=== PATIENT | female | born 1930 | race Caucasian/White ===

== ENCOUNTER 2016-05-29 20:34 | Inpatient (IN) | payer MEDICARE, BC ==
[~2016-05-29] VITALS: Ht 160 cm; Wt 54.3 kg
[~2016-05-29 20:34] MED LIST: AMLO10 PO; ASPI81 PO; BUTACAP2 PO; CIPR500T2 PO; DONE5TAB14 PO; HCTZ25 PO; LISI20 PO; PRED50 PO
[2016-05-29 20:38] VITALS: BP 189/83; PULSE 89; RESP 15; TEMP 98.6; O2SAT 98
--- NOTE | 2016-05-29 21:05 | PD ---
HPI Chief Complaint: Head Injury Time Seen by Provider: 21:05 Travel History International Travel<30 days: No Contact w/Intl Traveler<30days: No Traveled to known affect area: No History of Present Illness HPI 86-year-old female with a history of hypertension presents to the emergency department for evaluation of head injury with confusion. The patient is accompanied by her [id number] who provides some of the history. The patient states that this afternoon she fell while sweeping in her garage. States that she is unsure how she fell, does not remember if she tripped and fell or if she became dizzy and fell. States that she does not remember how long she laid there or if she lost consciousness. She does state she remembers her [id number]-evn calling her to check on her and then coming over to pick her up and bring her here. The patient denies any complaints. Denies any headache, lightheadedness, dizziness, nausea, vomiting, numbness or tingling, weakness, neck pain, back pain, chest pain, shortness of breath. The patient's [id number] reports that the patient has a history of which she believes is mild dementia undiagnosed due to the patient's sensitivity regarding the issue. States that she does have short-term memory loss and this is been ongoing for several years. States that she called the patient at 7 PM to check on her which is when the patient told her that she had fallen while sweeping hitting her head and was down for about 30 minutes. States that she is acting strange and a little confused. Denies any anticoagulation. No other complaints. PFSH Past Medical History Diminished Hearing: No Hypertension: Yes Musculoskeletal: Yes (CHRONIC BACK PAIN LEVEL L3-L4) Psychiatric: No Tetanus Vaccination: Unknown Influenza Vaccination: Yes Menopausal: Yes Past Surgical History Gynecologic Surgery: Yes Hysterectomy: Yes (1976) Other Surgery: Yes (back surgery) Social History Alcohol Use: Yes (OCCASSIONAL) Tobacco Use: No Substance Use: No Allergies-Medications (Allergen,Severity, Reaction): Coded Allergies: Vitamin B12 (Verified Allergy, Severe, 05/29/16) Dilaudid (Verified Allergy, Intermediate, Sedation, 05/29/16) PT'S STATES AFTER DILAUDID WAS ADMINISTERED PT WENT UNCONSIOUS Reported Meds & Prescriptions Reported Meds & Active Scripts Active Active Prescriptions or Reported Medications Unobtainable Review of Systems Except as stated in HPI: all other systems reviewed are Neg Physical Exam Narrative GENERAL: Well-nourished and well-developed pleasant female patient in no acute distress. SKIN: No obvious lacerations or abrasions noted. HEAD: Normocephalic and atraumatic. Contusion to posterior scalp with tenderness to palpation. EYES: No scleral icterus, injection, or drainage. PERRLA. EOMI. No hyphema present. ENT: No septal hematoma or hemotympanum noted. Oropharynx is clear and the airway is patent. NECK: Supple and the trachea is midline. No obvious deformities, crepitus, or midline tenderness noted. CARDIOVASCULAR: Regular rate and rhythm. RESPIRATORY: Breath sounds are equal bilaterally with no accessory muscle use, wheezing, rhonchi, or crackles. GASTROINTESTINAL: Abdomen is soft, non-tender, and nondistended. MUSCULOSKELETAL: No obvious deformities, swelling, cyanosis, or ecchymosis is present throughout the upper and lower extremities. Patient has full range of motion without any signs of neurovascular compromise. Strength 5/5 upper and lower extremities and equal bilaterally. NEUROLOGICAL: Awake, alert, and oriented. Normal speech and gait. Cranial nerves are grossly intact. Data Data Last Documented VS Vital Signs Date Time Temp Pulse Resp B/P Pulse Ox O2 Delivery O2 Flow Rate FiO2 05/29/16:17 76 173/73 Room Air 05/29/16 20:49 96 05/29/16 20:38 98.6 15 Orders Electrocardiogram (05/29/16 21:04) Complete Blood Count With Diff (05/29/16 21:04) Comprehensive Metabolic Panel (05/29/16 21:04) Creatine Kinase (Cpk) (05/29/16 21:04) Prothrombin Time / Inr (Pt) (05/29/16 21:04) Act Partial Throm Time (Ptt) (05/29/16 21:04) Troponin I (05/29/16 21:04) Urinalysis - C+S If Indicated (05/29/16 21:04) Ct Brain W/O Iv Contrast(Rout) (05/29/16 21:04) Blood Glucose (05/29/16 21:04) Ecg Monitoring (05/29/16 21:04) Iv Access Insert/Monitor (05/29/16 21:04) Oximetry (05/29/16 21:04) Sodium Chloride 0.9% Flush (Ns Flush) (05/29/16 21:15) Admit Order (Ed Use Only) (05/29/16 22:16) Consult Neurosurgery (05/29/16 ) Labs Laboratory Tests Test 05/29/16 21:35 White Blood Count 9.1 TH/MM3 Red Blood Count 3.86 MIL/MM3 Hemoglobin 11.7 GM/DL Hematocrit 34.9 % Mean Corpuscular Volume 90.4 FL Mean Corpuscular Hemoglobin 30.4 PG Mean Corpuscular Hemoglobin 33.6 % Concent Red Cell Distribution Width 14.7 % Platelet Count 282 TH/MM3 Mean Platelet Volume 8.4 FL Neutrophils (%) (Auto) 72.0 % Lymphocytes (%) (Auto) 15.0 % Monocytes (%) (Auto) 9.7 % Eosinophils (%) (Auto) 2.4 % Basophils (%) (Auto) 0.9 % Neutrophils # (Auto) 6.5 TH/MM3 Lymphocytes # (Auto) 1.4 TH/MM3 Monocytes # (Auto) 0.9 TH/MM3 Eosinophils # (Auto) 0.2 TH/MM3 Basophils # (Auto) 0.1 TH/MM3 CBC Comment DIFF FINAL Differential Comment Prothrombin Time 10.6 SEC Prothromb Time International 1.0 RATIO Ratio Activated Partial 30.8 SEC Thromboplast Time Sodium Level 141 MEQ/L Potassium Level 4.7 MEQ/L Chloride Level 106 MEQ/L Carbon Dioxide Level 28.8 MEQ/L Anion Gap 6 MEQ/L Blood Urea Nitrogen 28 MG/DL Creatinine 1.34 MG/DL Estimat Glomerular Filtration 38 ML/MIN Rate Random Glucose 97 MG/DL Calcium Level 8.7 MG/DL Total Bilirubin 0.3 MG/DL Aspartate Amino Transf 24 U/L (AST/SGOT) Alanine Aminotransferase 19 U/L (ALT/SGPT) Alkaline Phosphatase 89 U/L Total Creatine Kinase 114 U/L Troponin I LESS THAN 0.02 NG/ML Total Protein 7.0 GM/DL Albumin 3.2 GM/DL [facility] Medical Decision Making Medical Screen Exam Complete: Yes Emergency Medical Condition: Yes Differential Diagnosis Scalp contusion versus intracranial hemorrhage versus concussion versus dementia versus electrolyte abnormality Narrative Course 86-year-old female presents to the emergency department for evaluation of fall with head trauma. Patient is afebrile, vital signs are stable. No focal neurologic deficits. She is awake, alert and oriented to person, place and situation but not to time. She has a contusion to her posterior scalp. She is unsure how she fell. IV access was obtained, labs were drawn and sent. CT of the head has been ordered and is pending. Head CT shows acute subdural hematoma on the right with a separate right frontal hemorrhage either intraparenchymal or separate subdural hematoma without any mass effect. CBC is unremarkable. CBC shows mild renal insufficiency with a creatinine of 1.34, BUN 28, GFR 38. Troponin is less than 0.02. Coags are unremarkable. Patient will be admitted to the ophthalmic pathologist service with neurosurgery consultation for intracranial hemorrhage. I discussed the case with my attending physician Dr. Casas who is aware of the patients history, physical examination findings, and treatment plan. Physician Communication Physician Communication My attending physician Dr. Casas spoke with Dr. Kelly neurosurgeon and Dr. Cespedes ophthalmic pathologist. Diagnosis Primary Impression: Intracranial hemorrhage Admitting Information Admitting Physician Requests: Admit Scripts Unable to Obtain Active Prescriptions or Reported Meds Renee Serna May 29, 2016 21:05
[2016-05-29] MEDS ORDERED: SODIUM CHLORIDE 0.9% FLUSH 10 ML FLUSH IVF PRN (21:15)
[2016-05-29 21:17] VITALS: BP 173/73; PULSE 76
--- NOTE | 2016-05-29 21:31 | RADRPT ---
EXAM DATE/TIME: 05/29/2016 21:18 [place] COMPARISON: No previous studies available for comparison. INDICATIONS : Fall and hit head today; increased confusion. RADIATION DOSE: 35.93 CTDIvol (mGy) MEDICAL HISTORY : Hypertension. SURGICAL HISTORY : None. ENCOUNTER: Initial ACUITY: 1 day PAIN SCALE: 5/10 LOCATION: cranial TECHNIQUE: Multiple contiguous axial images were obtained of the head. Using automated exposure control and adj ustment of the mA and/or kV according to patient size, radiation dose was kept as low as reasonably a chievable to obtain optimal diagnostic quality images. FINDINGS: There is an approximate 8 mm acute subdural hematoma in the right frontal lobe with a separate a talia approximate 2.2 cm hemorrhage probably intraparenchymal in the right frontal lobe. This latter ar ea may also be subdural in location. There is no mass effect. Slight degree of brain atrophy is seen. Slight periventricular white matter changes are seen nonspecific mostly consistent with chronic smal l vessel ischemic changes. CONCLUSION: Acute subdural hematoma on the right with a separate right frontal hemorrhage either intraparenchymal or separate subdural hematoma without any mass effect. Dev Mccullough MD on May 29, 2016 at 21:25 Board Certified Radiologist. This report was verified electronically.
[2016-05-29 21:47] LABS: AUTOMATED NEUTROPHIL # 6.5 TH/MM3 (1.8-7.7); BASOPHIL # 0.1 TH/MM3 (0-0.2); BASOPHIL % 0.9 % (0.0-2.0); EOSINOPHIL # 0.2 TH/MM3 (0-0.4); EOSINOPHIL % 2.4 % (0.0-4.0); HEMATOCRIT 34.9 % (35.0-46.0); HEMO FLAGS DIFF FINAL; LYMPHOCYTE # 1.4 TH/MM3 (1.0-4.8); MEAN CELL VOLUME 90.4 FL (80.0-100.0); MEAN CORPUSCULAR HEMOGLOBIN 30.4 PG (27.0-34.0); MEAN CORPUSCULAR HGB CONC 33.6 % (32.0-36.0); MONO % 9.7 % (0.0-8.0); PLATELET COUNT 282 TH/MM3 (150-450); RED BLOOD COUNT 3.86 MIL/MM3 (4.00-5.30); RED CELL DISTRIBUTION WIDTH 14.7 % (11.6-17.2); WHITE BLOOD COUNT 9.1 TH/MM3 (4.0-11.0)
[2016-05-29 21:58] LABS: APTT (PATIENT) 30.8 SEC (24.3-30.1); PROTHROMBIN TIME - PATIENT 10.6 SEC (9.8-11.6)
--- NOTE | 2016-05-29 22:08 | PD ---
Physical Exam Narrative Patient was seen by me and my inside sales assistant. Data Data Last Documented VS Vital Signs Date Time Temp Pulse Resp B/P Pulse Ox O2 Delivery O2 Flow Rate FiO2 05/29/16:17 76 173/73 Room Air 05/29/16 20:49 96 05/29/16 20:38 98.6 15 Orders Electrocardiogram (05/29/16 21:04) Complete Blood Count With Diff (05/29/16 21:04) Comprehensive Metabolic Panel (05/29/16 21:04) Creatine Kinase (Cpk) (05/29/16 21:04) Prothrombin Time / Inr (Pt) (05/29/16 21:04) Act Partial Throm Time (Ptt) (05/29/16 21:04) Troponin I (05/29/16 21:04) Urinalysis - C+S If Indicated (05/29/16 21:04) Ct Brain W/O Iv Contrast(Rout) (05/29/16 21:04) Blood Glucose (05/29/16 21:04) Ecg Monitoring (05/29/16 21:04) Iv Access Insert/Monitor (05/29/16 21:04) Oximetry (05/29/16 21:04) Sodium Chloride 0.9% Flush (Ns Flush) (05/29/16 21:15) Labs Laboratory Tests Test 05/29/16 21:35 White Blood Count 9.1 TH/MM3 Red Blood Count 3.86 MIL/MM3 Hemoglobin 11.7 GM/DL Hematocrit 34.9 % Mean Corpuscular Volume 90.4 FL Mean Corpuscular Hemoglobin 30.4 PG Mean Corpuscular Hemoglobin 33.6 % Concent Red Cell Distribution Width 14.7 % Platelet Count 282 TH/MM3 Mean Platelet Volume 8.4 FL Neutrophils (%) (Auto) 72.0 % Lymphocytes (%) (Auto) 15.0 % Monocytes (%) (Auto) 9.7 % Eosinophils (%) (Auto) 2.4 % Basophils (%) (Auto) 0.9 % Neutrophils # (Auto) 6.5 TH/MM3 Lymphocytes # (Auto) 1.4 TH/MM3 Monocytes # (Auto) 0.9 TH/MM3 Eosinophils # (Auto) 0.2 TH/MM3 Basophils # (Auto) 0.1 TH/MM3 CBC Comment DIFF FINAL Differential Comment Prothrombin Time 10.6 SEC Prothromb Time International 1.0 RATIO Ratio Activated Partial 30.8 SEC Thromboplast Time MDM Supervised Visit with JAIRON: Yes Interpretation(s) Last Impressions Head CT 05/29/162103 Signed Impressions: Service Date/Time: Sunday, May 29, 2016 21:18 - CONCLUSION: Acute subdural hematoma on the right with a separate right frontal hemorrhage either intraparenchymal or separate subdural hematoma without any mass effect. Dev Mccullough MD Diagnosis Primary Impression: Intracranial hemorrhage Admitting Information Admitting Physician Requests: Admit Scripts Unable to Obtain Active Prescriptions or Reported Meds Micheal Casas MD May 29, 2016 22:08
[2016-05-29 22:16] LABS: ALKALINE PHOSPHATASE 89 U/L (45-117); ALT (GPT) 19 U/L (10-53); ANION GAP 6 MEQ/L (5-15); AST (GOT) 24 U/L (15-37); BICARBONATE 28.8 MEQ/L (21.0-32.0); BLOOD UREA NITROGEN 28 MG/DL (7-18); CHLORIDE 106 MEQ/L (98-107); CREATINE KINASE 114 U/L (26-192); GLOMERULAR FILTRATION RATE 38 ML/MIN (>89); POTASSIUM 4.7 MEQ/L (3.5-5.1); SODIUM (NA) 141 MEQ/L (136-145); TOTAL BILIRUBIN ADULT 0.3 MG/DL (0.2-1.0)
--- NOTE | 2016-05-29 22:43 | HHI.HP ---
[facility] Service Critical Care Medicine Primary Care Physician Mckay Franco, DO Admission Diagnosis intracranial hemorrhage Diagnosis: Travel History International Travel<30 Days: No Contact w/Intl Traveler <30 Da: No Traveled to Known Affected Are: No History of Present Illness 86-year-old very pleasant female with a history of hypertension and some chronic back pain presents for evaluation of head injury with confusion. The patient is accompanied by her [id number] who provides some of the history. The patient fell while sweeping in her garage. She is unsure how she fell, does not remember if she tripped and fell or if she became dizzy and fell. States that she does not remember how long she laid there or if she lost consciousness. CT of the head shows small subdural hematoma with some small intraparenchymal hemorrhagic. She is admitted to critical care unit for neurologic monitoring and observation. Review of Systems Constitutional: DENIES: Diaphoretic episodes, Fatigue, Fever, Weight gain, Weight loss, Chills, Dizziness, Change in appetite, Night Sweats Endocrine: DENIES: Abnorml menstrual pattern, Heat/cold intolerance, Polydipsia , Polyuria, Polyphagia Eyes: DENIES: Blurred vision, Diplopia, Eye inflammation, Eye pain, Vision loss , Photosensitivity, Double Vision Ears, nose, mouth, throat: DENIES: Tinnitus, Hearing loss, Vertigo, Nasal discharge, Oral lesions, Throat pain, Hoarseness, Ear Pain, Running Nose, Epistaxis, Sinus Pain, Toothache, Odynophagia Respiratory: DENIES: Apneas, Cough, Snoring, Wheezing, Hemoptysis, Sputum production, Shortness of breath Cardiovascular: COMPLAINS OF: Chest pain, Palpitations, Syncope, Dyspnea on Exertion, PND, Lower Extremity Edema, Orthopnea, Claudication Gastrointestinal: DENIES: Abdominal pain, Black stools, Bloody stools, Constipation, Diarrhea, Nausea, Vomiting, Difficulty Swallowing, Anorexia Genitourinary: DENIES: Abnormal vaginal bleeding, Dysmenorrhea, Dyspareunia, Sexual dysfunction, Urinary frequency, Urinary incontinence, Urgency, Hematuria , Dysuria, Nocturia, Vaginal discharge Musculoskeletal: DENIES: Joint pain, Muscle aches, Stiffness, Joint Swelling, Back pain, Neck pain Integumentary: DENIES: Abnormal pigmentation, Pruritus, Rash, Nail changes, Breast masses, Breast skin changes, Nipple discharge Hematologic/lymphatic: DENIES: Bruising, Lymphadenopathy Immunologic/allergic: DENIES: Eczema, Urticaria Neurologic: COMPLAINS OF: Headache, DENIES: Abnormal gait, Localized weakness , Paresthesias, Seizures, Speech Problems, Tremor, Poor Balance Psychiatric: DENIES: Anxiety, Confusion, Mood changes, Depression, Hallucinations, Agitation, Suicidal Ideation, Homicidal Ideation, Delusions Past Family Social History Allergies: Coded Allergies: Vitamin B12 (Verified Allergy, Severe, 05/29/16) Dilaudid (Verified Allergy, Intermediate, Sedation, 05/29/16) PT'S STATES AFTER DILAUDID WAS ADMINISTERED PT WENT UNCONSIOUS Past Medical History Hypertension Chronic back pain Short-term memory problem Past Surgical History Hysterectomy Spinal surgery Reported Medications Meloxicam Blood pressure medications Active Ordered Medications Current Medications Medications (Trade) Dose Ordered Sig/Sam Route PRN Reason Start Time Stop Time Status Last Admin Dose Admin Sodium Chloride (NS 1000 ml Inj) 1,000 ml @ 84 mls/hr [id number] IV 05/29/16 23:00 05/29/16 23:24 Sodium Chloride (NS Flush) 2 ml UNSCH PRN .XX FLUSH AFTER USING IV ACCESS 05/29/16 22:45 Sodium Chloride (NS Flush) 2 ml BID .XX 05/29/16 22:45 05/29/16 23:23 Acetaminophen (Tylenol) 650 mg Q6H PRN PO PAIN 1-10 AND/OR FEVER >101F 05/29/16 22:45 Ondansetron HCl (Zofran Inj) 4 mg Q6H PRN IV NAUSEA OR VOMITING 05/29/16 22:45 Metoclopramide HCl (Reglan Inj) 5 mg Q6H PRN IV NAUSEA OR VOMITING 05/29/16 22:45 Miscellaneous Information 1 [id number] XX 05/29/16 22:45 Chlorhexidine Gluconate (Chlorhexidine 2% Cloth) 3 pack Taper DAILY@04 TOP 05/30/16 04:00 05/26/17 03:59 Chlorhexidine Gluconate (Chlorhexidine 2% Cloth) 3 pack UNSCH PRN TOP HYGIENIC CARE 05/29/16 22:45 Hydralazine HCl (Apresoline Inj) 20 mg Q4H PRN IV PUSH SBP>160, DBP>90 05/29/16 22:45 Family History Noncontributory Social History Negative 3 Physical Exam Vital Signs Vital Signs Date Time Temp Pulse Resp B/P Pulse Ox O2 Delivery O2 Flow Rate FiO2 05/29/16 21:17 76 173/73 Room Air 05/29/16 20:49 81 96 Room Air 05/29/16 20:38 98.6 89 15 189/83 98 Room Air Physical Exam GENERAL: Well-nourished, well-developed patient very pleasant lady. SKIN: Warm and dry. HEAD: Normocephalic. EYES: No scleral icterus. No injection or drainage. NECK: Supple, trachea midline. No JVD or lymphadenopathy. CARDIOVASCULAR: Regular rate and rhythm without murmurs, gallops, or rubs. RESPIRATORY: Breath sounds equal bilaterally. No accessory muscle use. GASTROINTESTINAL: Abdomen soft, non-tender, nondistended. MUSCULOSKELETAL: No cyanosis, or edema. BACK: Nontender without obvious deformity. No CVA tenderness. EXTREMITIES: Nonfocal, no clubbing or cyanosis or edema Laboratory Laboratory Tests Test 05/29/16 21:35 White Blood Count 9.1 Red Blood Count 3.86 Hemoglobin 11.7 Hematocrit 34.9 Mean Corpuscular Volume 90.4 Mean Corpuscular Hemoglobin 30.4 Mean Corpuscular Hemoglobin 33.6 Concent Red Cell Distribution Width 14.7 Platelet Count 282 Mean Platelet Volume 8.4 Neutrophils (%) (Auto) 72.0 Lymphocytes (%) (Auto) 15.0 Monocytes (%) (Auto) 9.7 Eosinophils (%) (Auto) 2.4 Basophils (%) (Auto) 0.9 Neutrophils # (Auto) 6.5 Lymphocytes # (Auto) 1.4 Monocytes # (Auto) 0.9 Eosinophils # (Auto) 0.2 Basophils # (Auto) 0.1 CBC Comment DIFF FINAL Differential Comment Prothrombin Time 10.6 Prothromb Time International 1.0 Ratio Activated Partial 30.8 Thromboplast Time Sodium Level 141 Potassium Level 4.7 Chloride Level 106 Carbon Dioxide Level 28.8 Anion Gap 6 Blood Urea Nitrogen 28 Creatinine 1.34 Estimat Glomerular Filtration 38 Rate Random Glucose 97 Calcium Level 8.7 Total Bilirubin 0.3 Aspartate Amino Transf 24 (AST/SGOT) Alanine Aminotransferase 19 (ALT/SGPT) Alkaline Phosphatase 89 Total Creatine Kinase 114 Troponin I LESS THAN 0.02 Total Protein 7.0 Albumin 3.2 Result Diagram: 3/213405/29/162134 Imaging Last [address] 05/29/162103 Signed Impressions: Service Date/Time: Sunday, May 29, 2016 21:18 - CONCLUSION: Acute subdural hematoma on the right with a separate right frontal hemorrhage either intraparenchymal or separate subdural hematoma without any mass effect. Dev Mccullough MD Assessment and Plan Assessment and Plan Traumatic brain injury - Status post fall - Small subdural hematoma with intraparenchymal extension - No neurosurgical intervention indicated - Monitor neuro checks in the ICU per protocol - Repeat CT head a.m. - ETT and OT eval and treat Lower back pain - Resume meloxicam Hypertension - Hydralazine when necessary - Resume home meds when available DVT GI prophylaxis - Early aggressive mobilization - Heart healthy diet Critical Care: The total critical care time was 35 minutes. Time to perform other separately billable procedures was not included in the critical care time. Jagjit Cespedes MD May 29, 2016 22:43
[2016-05-29] MEDS ORDERED: METOCLOPRAMIDE HCL 10 MG/2 ML VIAL IV PRN (22:45)
[2016-05-29] MEDS ORDERED: SODIUM CHLORIDE 0.9% FLUSH 10 ML FLUSH PRN (22:45)
[2016-05-29] MEDS ORDERED: CHLORHEXIDINE GLUCONATE 2 % 1 PACK (2 CLOTHS) TOP PRN (22:45)
[2016-05-29] MEDS ORDERED: RESP: ALBUTEROL 2.5 MG/IPRATROPIUM 0.5 MG NEB (PRN) INH (22:45)
[2016-05-29] MEDS ORDERED: MISCELLANEOUS NURSING INFORMATION XX SCH (22:45)
[2016-05-29] MEDS: SODIUM CHLORIDE 0.9% FLUSH 10 ML FLUSH SCH (23:23)
[2016-05-29] MEDS: SODIUM CHLOR 0.9% 1000 ML INJ 1,000 ML IV SCH (23:24)
[2016-05-30] VITALS (9 sets, daily range): PULSE 79–101; O2SAT 98
[2016-05-30] MEDS ORDERED: GLUCAGON 1 MG/ML VIAL OTHER PRN (02:30)
[2016-05-30] MEDS ORDERED: DEXTROSE 50% IN WATER 50 ML VIAL(D50) IV PUSH PRN (02:30)
[2016-05-30] MEDS: CHLORHEXIDINE GLUCONATE 2 % 1 PACK (2 CLOTHS) TOP SCH (04:00)
[2016-05-30] MEDS: hydrALAZINE HCL 20 MG/ML VIAL IV PUSH PRN ×2 (06:17→17:14)
[2016-05-30] MEDS ORDERED: INSULIN ASPART SUPPLEMENTAL SCALE SQ SCH (07:00)
[2016-05-30] MEDS: SODIUM CHLORIDE 0.9% FLUSH 10 ML FLUSH SCH ×2 (07:37→21:00)
[2016-05-30] MEDS: ONDANSETRON HCL 4 MG/2 ML VIAL IV PRN (07:37)
--- NOTE | 2016-05-30 08:56 | PD.CONS ---
[facility] Service neurosurg Consult Requested By sandy LINARES Reason for Consult [facility] Primary Care Physician Mckay Franco, DO History of Present Illness This is a 86-year-old female with a history of arterial hypertension and chronic who suffered a head injury with confusion.Apparently she fell while sweeping in her garage. She is unsure how she fell, does not remember if she tripped and fell or if she became dizzy and fell. States that she does not remember how long she laid there or if she lost consciousness. No seizure activity. No tongue bitting. No incontinence of stool or urine. CT of the head shows small subdural hematoma with some small intraparenchymal hemorrhagic. No focal weakness. No sensory loss. No visual loss. Neurosurgical consultation was requested. Review of Systems Constitutional: DENIES: Diaphoretic episodes, Fatigue, Fever, Weight gain, Weight loss, Chills, Dizziness, Change in appetite, Night Sweats Endocrine: DENIES: Abnorml menstrual pattern, Heat/cold intolerance, Polydipsia , Polyuria, Polyphagia Eyes: DENIES: Blurred vision, Diplopia, Eye inflammation, Eye pain, Vision loss , Photosensitivity, Double Vision Ears, nose, mouth, throat: DENIES: Tinnitus, Hearing loss, Vertigo, Nasal discharge, Oral lesions, Throat pain, Hoarseness, Ear Pain, Running Nose, Epistaxis, Sinus Pain, Toothache, Odynophagia Respiratory: DENIES: Apneas, Cough, Snoring, Wheezing, Hemoptysis, Sputum production, Shortness of breath Cardiovascular: COMPLAINS OF: Chest pain, Palpitations, Syncope, Dyspnea on Exertion, PND, Lower Extremity Edema, Orthopnea, Claudication Gastrointestinal: DENIES: Abdominal pain, Black stools, Bloody stools, Constipation, Diarrhea, Nausea, Vomiting, Difficulty Swallowing, Anorexia Genitourinary: DENIES: Abnormal vaginal bleeding, Dysmenorrhea, Dyspareunia, Sexual dysfunction, Urinary frequency, Urinary incontinence, Urgency, Hematuria , Dysuria, Nocturia, Vaginal discharge Musculoskeletal: DENIES: Joint pain, Muscle aches, Stiffness, Joint Swelling, Back pain, Neck pain Integumentary: DENIES: Abnormal pigmentation, Pruritus, Rash, Nail changes, Breast masses, Breast skin changes, Nipple discharge Hematologic/lymphatic: DENIES: Bruising, Lymphadenopathy Immunologic/allergic: DENIES: Eczema, Urticaria Neurologic: COMPLAINS OF: Headache, DENIES: Abnormal gait, Localized weakness , Paresthesias, Seizures, Speech Problems, Tremor, Poor Balance Psychiatric: DENIES: Anxiety, Confusion, Mood changes, Depression, Hallucinations, Agitation, Suicidal Ideation, Homicidal Ideation, Delusions Past Family Social History Allergies: Coded Allergies: Vitamin B12 (Verified Allergy, Severe, 05/29/16) Dilaudid (Verified Allergy, Intermediate, Sedation, 05/29/16) PT'S STATES AFTER DILAUDID WAS ADMINISTERED PT WENT UNCONSIOUS Past Medical History Hypertension Chronic back pain Past Surgical History Hysterectomy Laminectomy Reported Medications Meloxicam Blood pressure medications Active Ordered Medications Current Medications Medications (Trade) Dose Ordered Sig/Sam Route PRN Reason Start Time Stop Time Status Last Admin Dose Admin Sodium Chloride (NS 1000 ml Inj) 1,000 ml @ 84 mls/hr [id number] IV 05/29/16 23:00 05/29/16 23:24 Sodium Chloride (NS Flush) 2 ml UNSCH PRN .XX FLUSH AFTER USING IV ACCESS 05/29/16 22:45 Sodium Chloride (NS Flush) 2 ml BID .XX 05/29/16 22:45 05/29/16 23:23 Acetaminophen (Tylenol) 650 mg Q6H PRN PO PAIN 1-10 AND/OR FEVER >101F 05/29/16 22:45 Ondansetron HCl (Zofran Inj) 4 mg Q6H PRN IV NAUSEA OR VOMITING 05/29/16 22:45 Metoclopramide HCl (Reglan Inj) 5 mg Q6H PRN IV NAUSEA OR VOMITING 05/29/16 22:45 Miscellaneous Information 1 Q361D XX 05/29/16 22:45 Chlorhexidine Gluconate (Chlorhexidine 2% Cloth) 3 pack Taper DAILY@04 TOP 05/30/16 04:00 05/26/17 03:59 Chlorhexidine Gluconate (Chlorhexidine 2% Cloth) 3 pack UNSCH PRN TOP HYGIENIC CARE 05/29/16 22:45 Hydralazine HCl (Apresoline Inj) 20 mg Q4H PRN IV PUSH SBP>160, DBP>90 05/29/16 22:45 Family History Noncontributory Social History No tobacco, No ETOH No illicit drug use Physical Exam Vital Signs Vital Signs Date Time Temp Pulse Resp B/P Pulse Ox O2 Delivery O2 Flow Rate FiO2 05/30/16 08:00 82 05/30/16 07:00 98 Room Air 05/30/16 04:23 88 16 95 05/29/16 21:17 76 173/73 Room Air 05/29/16 20:49 81 96 Room Air 05/29/16 20:38 98.6 89 15 189/83 98 Room Air Laboratory Laboratory Tests Test 05/29/16 21:35 White Blood Count 9.1 Red Blood Count 3.86 Hemoglobin 11.7 Hematocrit 34.9 Mean Corpuscular Volume 90.4 Mean Corpuscular Hemoglobin 30.4 Mean Corpuscular Hemoglobin 33.6 Concent Red Cell Distribution Width 14.7 Platelet Count 282 Mean Platelet Volume 8.4 Neutrophils (%) (Auto) 72.0 Lymphocytes (%) (Auto) 15.0 Monocytes (%) (Auto) 9.7 Eosinophils (%) (Auto) 2.4 Basophils (%) (Auto) 0.9 Neutrophils # (Auto) 6.5 Lymphocytes # (Auto) 1.4 Monocytes # (Auto) 0.9 Eosinophils # (Auto) 0.2 Basophils # (Auto) 0.1 CBC Comment DIFF FINAL Differential Comment Prothrombin Time 10.6 Prothromb Time International 1.0 Ratio Activated Partial 30.8 Thromboplast Time Sodium Level 141 Potassium Level 4.7 Chloride Level 106 Carbon Dioxide Level 28.8 Anion Gap 6 Blood Urea Nitrogen 28 Creatinine 1.34 Estimat Glomerular Filtration 38 Rate Random Glucose 97 Calcium Level 8.7 Total Bilirubin 0.3 Aspartate Amino Transf 24 (AST/SGOT) Alanine Aminotransferase 19 (ALT/SGPT) Alkaline Phosphatase 89 Total Creatine Kinase 114 Troponin I LESS THAN 0.02 Total Protein 7.0 Albumin 3.2 Result Diagram: 05/29/16213405/29/162134 Attending Statement I have reviewed her clinical and further studies. neuro checks in a serial fashion. Placement of ICP monitor is not indicated. There is no significant midline shift. May a follow-up CT will be obtained Respiratory. pulmonary toilette, nasotracheal suction, and breathing treatments with nebulizers. PT and OT eval Nutrition. Oral diet Renal. monitor closely urine output, BUN and creatinine Endocrine. Monitor serial Acu checks and SSI for tight control ID monitor for signs of infection Protonix for stress ulcer prophylaxis Stewart hose and SCD's for DVT prophylaxis Jose Kelly MD May 30, 2016 08:56
--- NOTE | 2016-05-30 09:38 | RADRPT ---
EXAM DATE/TIME: 05/30/2016 09:16 [facility] COMPARISON: CT BRAIN W/O CONTRAST, May 29, 2016, 21:18. INDICATIONS : Follow up bleed. RADIATION DOSE: 35.13 CTDIvol (mGy) MEDICAL HISTORY : Hypertension. SURGICAL HISTORY : Hysterectomy. ENCOUNTER: Initial ACUITY: 1 day PAIN SCALE: 1/10 LOCATION: cranial TECHNIQUE: Multiple contiguous axial images were obtained of the head. Using automated exposure control and adj ustment of the mA and/or kV according to patient size, radiation dose was kept as low as reasonably a chievable to obtain optimal diagnostic quality images. FINDINGS: The examination demonstrates an area of acute extra-axial hemorrhage along the interhemispheric fissu re anteriorly. This is similar in appearance to previous study dated 05/29/16. There is no significant mass effect on the right frontal lobe. The examination also demonstrates an area of old trauma hygro mas hemorrhage along the more inferior aspect of the right frontal lobe as well. This is unchanged in size when compared to previous. There is mild cortical atrophy. The ventricles are normal in size and configuration. The appearance of the posterior fossa is unremarkable. The sinuses are clear. The orbits are intact. CONCLUSION: 1. Subdural hemorrhage seen along the anterior medial aspect of the right frontal lobe of varying age s. This is similar in appearance to previous study dated 05/29/16. Mac Bell MD on May 30, 2016 at 9:34 Board Certified Radiologist. This report was verified electronically.
[2016-05-30] MEDS: SODIUM CHLOR 0.9% 1000 ML INJ 1,000 ML IV SCH (10:56)
--- NOTE | 2016-05-30 14:59 | HHI.PR ---
Subjective Remarks 86 years old, right handed female was sweeping inside the garage when fell staff reports baseline dementia , pretty independent and uses a walker occasionally now denies any pain, headaches, nausea or vomiting Objective Vitals Vital Signs Date Time Temp Pulse Resp B/P Pulse Ox O2 Delivery O2 Flow Rate FiO2 05/30/16 14:00 85 05/30/16 12:00 79 05/30/16 10:00 94 05/30/16 08:00 82 05/30/16 07:00 98 Room Air 05/30/16 04:23 88 16 95 05/29/16 21:17 76 173/73 Room Air 05/29/16 20:49 81 96 Room Air 05/29/16 20:38 98.6 89 15 189/83 98 Room Air I/O 05/29/16 05/29/16 05/29/16 05/30/16 05/30/16 05/30/16 07:00 15:00 23:00 07:00 15:00 23:00 Intake Total 802 ml Balance 802 ml Intake Oral 400 ml IV Total 402 ml # Voids 4 # Bowel Movements 1 Result Diagram: 05/29/16213405/29/162134 Imaging Last Impressions Head CT 05/30/16 0600 Signed Impressions: Service Date/Time: May 09:16 - CONCLUSION: 1. Subdural hemorrhage seen along the anterior medial aspect of the right frontal lobe of varying ages. This is similar in appearance to previous study dated 05/29/16. Mac Bell MD Objective Remarks awake and alert, speech clear, oriented x 3 anicteric lungs no rales regular rhythm abdomen- soft good bowel sounds extremities no edema A/P Assessment and Plan Traumatic brain injury - Status post fall - Small subdural hematoma with intraparenchymal extension - No neurosurgical intervention indicated - Monitor neuro checks in the ICU per protocol - Repeat CT head -stab;e- Neurosurgery ff - ETT and OT eval and treat ? Underlying Dementia - will try to get more info and speak with family Lower back pain - On meloxicam- will DC with GETACHEW Hypertension history - Hydralazine when necessary - Resume home meds- no list - will review when available Acute kidney injury- gentle hydration DVT GI prophylaxis - Early aggressive mobilization - Heart healthy diet transfer to neurology floor- awaiting bed availability- if cleared with Adeline Mckeon MD May 30, 2016 14:59
[2016-05-30 17:25] LABS: BICARBONATE 23.6 MEQ/L (21.0-32.0); POTASSIUM 4.7 MEQ/L (3.5-5.1)
[2016-05-30] MEDS: PANTOPRAZOLE SOD 40 MG DELAYED RELEASE TAB PO SCH (18:08)
[2016-05-30] MEDS: ACETAMINOPHEN 325 MG TAB PO PRN (18:08)
--- NOTE | 2016-05-30 19:32 | RADRPT ---
EXAM DATE/TIME: 05/30/2016 18:54 [facility] COMPARISON: CHEST SINGLE AP, August 27, 2014, 18:56. INDICATIONS : Fever. MEDICAL HISTORY : None. SURGICAL HISTORY : None. ENCOUNTER: Initial ACUITY: 1 day PAIN SCORE: Non-responsive. LOCATION: Bilateral chest FINDINGS: A single view of the chest demonstrates minimal basilar atelectasis. No dense consolidation. No signi ficant effusion. No pneumothorax. Tortuous aorta. CONCLUSION: 1. Minimal basilar atelectasis. No effusion. No pneumothorax. Aaron Hendrix MD on May 30, 2016 at 19:29 Board Certified Radiologist. This report was verified electronically.
[2016-05-30 20:40] LABS: AUTOMATED NEUTROPHIL # 6.2 TH/MM3 (1.8-7.7); BASOPHIL % 0.5 % (0.0-2.0); EOSINOPHIL # 0.1 TH/MM3 (0-0.4); EOSINOPHIL % 1.5 % (0.0-4.0); HEMATOCRIT 34.5 % (35.0-46.0); HEMO FLAGS DIFF FINAL; LYMPH % 14.6 % (9.0-44.0); LYMPHOCYTE # 1.2 TH/MM3 (1.0-4.8); MEAN CELL VOLUME 89.9 FL (80.0-100.0); MEAN CORPUSCULAR HEMOGLOBIN 30.8 PG (27.0-34.0); MEAN CORPUSCULAR HGB CONC 34.2 % (32.0-36.0); MONO % 7.8 % (0.0-8.0); NEUT % 75.6 % (16.0-70.0); PLATELET COUNT 268 TH/MM3 (150-450); RED BLOOD COUNT 3.84 MIL/MM3 (4.00-5.30); RED CELL DISTRIBUTION WIDTH 14.5 % (11.6-17.2); WHITE BLOOD COUNT 8.2 TH/MM3 (4.0-11.0)
--- NOTE | 2016-05-30 20:40 | EKG ---
Date Performed: 05/29/2016 Time Performed: 21:50:10 PTAGE: 86 years EKG: Sinus rhythm WITH FIRST DEGREE AV BLOCK LEFT BUNDLE BRANCH BLOCK When compared to previous racing, first degree A V block is new. ABNORMAL ECG PREVIOUS TRACING : 08/29/2014 00.18 DOCTOR: Petr Yusuf Interpretating Date/Time 05/30/2016 20:38:31
[2016-05-31] VITALS (14 sets, daily range): BP systolic 130–177; BP diastolic 60–88; PULSE 82–93; RESP 15–19; TEMP 98.5–99.4; O2SAT 96–99
[2016-05-31] MEDS: CHLORHEXIDINE GLUCONATE 2 % 1 PACK (2 CLOTHS) TOP SCH (04:00)
[2016-05-31] MEDS: hydrALAZINE HCL 20 MG/ML VIAL IV PUSH PRN ×3 (04:40→22:16)
[2016-05-31] MEDS: ONDANSETRON HCL 4 MG/2 ML VIAL IV PRN (04:40)
[2016-05-31] MEDS: SODIUM CHLORIDE 0.9% FLUSH 10 ML FLUSH SCH ×2 (07:41→20:24)
[2016-05-31] MEDS: SODIUM CHLOR 0.9% 1000 ML INJ 1,000 ML IV SCH (07:41)
[2016-05-31] MEDS: PANTOPRAZOLE SOD 40 MG DELAYED RELEASE TAB PO SCH (07:54)
[2016-05-31 14:32] LABS: BICARBONATE 23.4 MEQ/L (21.0-32.0); POTASSIUM 4.3 MEQ/L (3.5-5.1)
--- NOTE | 2016-05-31 15:18 | HHI.NSPN ---
Note Status Status: Progress Note Interval History Diagnosis TBI Interval History This is a 86-year-old female with a history of arterial hypertension and chronic who suffered a head injury with confusion.Apparently she fell while sweeping in her garage. She is unsure how she fell, does not remember if she tripped and fell or if she became dizzy and fell. States that she does not remember how long she laid there or if she lost consciousness. No seizure activity. No tongue bitting. No incontinence of stool or urine. CT of the head shows small subdural hematoma with some small intraparenchymal hemorrhagic. No focal weakness. No sensory loss. No visual loss. Neurosurgical consultation was requested. 05/31. Alert, Awake. Midly confused. Neurologically stab le. Follow up CT was obtained Labs, Micro, & Vital Signs Results Date Time Temp Pulse Resp B/P Pulse Ox O2 Delivery O2 Flow Rate FiO2 05/31/16 14:00 89 05/31/16 12:00 98.5 82 15 130/88 99 05/31/16 12:00 82 05/31/16 10:00 87 05/31/16 08:24 96 21 05/31/16 08:00 99.0 88 16 130/60 96 05/31/16 08:00 88 05/31/16 07:00 95 Room Air 05/31/16 06:00 86 05/31/16 04:00 82 05/31/16 02:00 82 05/31/16 00:00 82 05/30/16 22:00 82 05/30/16 21:16 98 21 05/30/16 20:00 82 05/30/16 19:00 95 Room Air 05/30/16 18:00 101 05/30/16 16:00 85 05/31/16 07:00 Intake Total 1783 ml Balance 1783 ml Constitutional Vital Signs Date Time Temp Pulse Resp B/P Pulse Ox O2 Delivery O2 Flow Rate FiO2 05/31/16 14:00 89 05/31/16 12:00 98.5 82 15 130/88 99 05/31/16 12:00 82 05/31/16 10:00 87 05/31/16 08:24 96 21 05/31/16 08:00 99.0 88 16 130/60 96 05/31/16 08:00 88 05/31/16 07:00 95 Room Air 05/31/16 06:00 86 05/31/16 04:00 82 05/31/16 02:00 82 05/31/16 00:00 82 05/30/16 22:00 82 05/30/16 21:16 98 21 05/30/16 20:00 82 05/30/16 19:00 95 Room Air 05/30/16 18:00 101 05/30/16 16:00 85 05/31/16 07:00 Intake Total 1783 ml Balance 1783 ml Review of Systems/Exam Exam The patient is alert, midly confused Cranial nerve examination demonstrates the pupils to be equal, round, and reactive to light. Extra-ocular movements are intact with normal convergence. Facial motor function appears normal and symmetrical. Hearing is decreased. Face sensation normal. Visual de la cruz, and olfaction can not be assessed properly due to the patients condition. The patient has an intact corneal reflex and a gag reflex. Sternocleidomastoid and trapezius have normal and symmetrical strength. Other cranial nerves are intact. Neck is soft and supple. Cervical spine has a decreased range of motion of the cervical spine without pain. There is no tenderness to palpation to the spinous processes or paraspinal muscles. Muscle testing reveals normal bulk and tone overall without rigidity, spasticity , fasciculations, or atrophy. Muscle strength is 5/5 in all muscle groups of both upper and lower extremities. Deep tendon reflexes are 1+ and symmetrical in the biceps, triceps, and brachioradialis, bilaterally, in the upper extremities. In the lower extremities , the patellar and Achilles are 1+, bilaterally. There is a bilateral plantar flexion response. Hoffmanns sign is negative. There is no clonus or other abnormal reflexes noted. Cerebellar examination is limited due to the patient condition, but no obvious deficits are noted. Medications Current Medications Current Medications Sodium Chloride 2 ml 2 ml UNSCH PRN IVF FLUSH AFTER USING IV ACCESS; Start at 21:15; Stop 05/29/16 at 22:45; Status DC Sodium Chloride (NS 1000 ml Inj) 1,000 ml @ 70 mls/hr [id number] IV Last administered on 05/31/16 07:41; Start 05/29/16 at 23:00 Sodium Chloride (NS Flush) 2 ml UNSCH PRN .XX FLUSH AFTER USING IV ACCESS; Start 05/29/16 at 22:45 Sodium Chloride (NS Flush) 2 ml BID .XX Last administered on 05/30/16 07:37; Start 05/29/16 at 22:45 Acetaminophen (Tylenol) 650 mg Q6H PRN PO PAIN 1-10 AND/OR FEVER >101F Last administered on 05/30/16 18:08; Start 05/29/16 at 22:45 Ondansetron HCl (Zofran Inj) 4 mg Q6H PRN IV NAUSEA OR VOMITING Last administered on 05/31/16 04:40; Start 05/29/16 at 22:45 Metoclopramide HCl (Reglan Inj) 5 mg Q6H PRN IV NAUSEA OR VOMITING; Start 05/29 at 22:45 Albuterol/ Ipratropium (Duoneb Neb) 1 ampule Q2HR NEB PRN INH WHEEZING; Start 05/29/16 at 22:45 Miscellaneous Information 1 Q361D XX ; Start 05/29/16 at 22:45 Chlorhexidine Gluconate (Chlorhexidine 2% Cloth) 3 pack Taper DAILY@04 TOP Last administered on 05/31/16 04:00; Start 05/30/16 at 04:00; Stop 05/26/17 at 03:59 Chlorhexidine Gluconate (Chlorhexidine 2% Cloth) 3 pack UNSCH PRN TOP HYGIENIC CARE; Start 05/29/16 at 22:45 Hydralazine HCl (Apresoline Inj) 20 mg Q4H PRN IV PUSH SBP>160, DBP>90 Last administered on 05/31/16 04:40; Start 05/29/16 at 22:45 Dextrose (D50w (Vial) Inj) 25 ml UNSCH PRN IV PUSH HYPOGLYCEMIA-SEE COMMENTS; Start 05/30/16 at 02:30; Stop 05/30/16 at 02:30; Status DC Glucagon (Glucagon Inj) 1 mg UNSCH PRN OTHER HYPOGLYCEMIA-SEE COMMENTS; Start 05/30/16 at 02:30; Stop 05/30/16 at 02:30; Status DC Insulin Aspart (NovoLOG SUPPLEMENTAL SCALE) 1 ACHS SLIDING SCALE SQ ; Start at 07:00; Stop 05/30/16 at 07:00; Status DC Pantoprazole Sodium (Protonix) 40 mg DAILY PO Last administered on 05/31/16t 07 :54; Start 05/30/16 at 18:00 Medical Decision Making MDM Remarks Last Impressions Chest X-Ray 05/30/16 1849 Signed Impressions: Service Date/Time: May 18:54 - CONCLUSION: 1. Minimal basilar atelectasis. No effusion. No pneumothorax. Aaron Hendrix MD Head CT 05/30/16 0600 Signed Impressions: Service Date/Time: May 09:16 - CONCLUSION: 1. Subdural hemorrhage seen along the anterior medial aspect of the right frontal lobe of varying ages. This is similar in appearance to previous study dated 05/29/16. Mac Bell MD Plan Plan Remarks I have reviewed her clinical and further studies. neuro checks in a serial fashion. Her follow up CT was stable Respiratory. Continue pulmonary toilette, nasotracheal suction, and breathing treatments with nebulizers. PT and OT Nutrition.Continue Oral diet Renal. Continue to monitor closely urine output, BUN and creatinine Endocrine. Continue to monitor serial Acu checks and SSI for tight control ID Continue to monitor for signs of infection Continue Protonix for stress ulcer prophylaxis Continue Stewart hose and SCD's for DVT prophylaxis Discharge planning Jose Kelly MD May 31, 2016 15:18
--- NOTE | 2016-05-31 15:19 | HHI.PR ---
Subjective Remarks patient awake and alert, no pain complains ff all commands no headaches, nausea or vomiting Objective Vitals Vital Signs Date Time Temp Pulse Resp B/P Pulse Ox O2 Delivery O2 Flow Rate FiO2 05/31/16 14:00 89 05/31/16 12:00 98.5 82 15 130/88 99 05/31/16 12:00 82 05/31/16 10:00 87 05/31/16 08:24 96 21 05/31/16 08:00 99.0 88 16 130/60 96 05/31/16 08:00 88 05/31/16 07:00 95 Room Air 05/31/16 06:00 86 05/31/16 04:00 82 05/31/16 02:00 82 05/31/16 00:00 82 05/30/16 22:00 82 05/30/16 21:16 98 21 05/30/16 20:00 82 05/30/16 19:00 95 Room Air 05/30/16 18:00 101 05/30/16 16:00 85 I/O 05/30/16 05/30/16 05/30/16 05/31/16 05/31/16 05/31/16 07:00 15:00 23:00 07:00 15:00 23:00 Intake Total 802 ml 444 ml 537 ml 1014 ml Balance 802 ml 444 ml 537 ml 1014 ml Intake Oral 400 ml 100 ml 100 ml 480 ml IV Total 402 ml 344 ml 437 ml 534 ml # Voids 4 2 3 3 # Bowel Movements 1 0 0 1 Result Diagram: 05/30/16200905/31/16 1406 Imaging Last Impressions Chest X-Ray 05/30/16 1849 Signed Impressions: Service Date/Time: May 18:54 - CONCLUSION: 1. Minimal basilar atelectasis. No effusion. No pneumothorax. Aaron Hendrix MD Head CT 05/30/16 0600 Signed Impressions: Service Date/Time: May 09:16 - CONCLUSION: 1. Subdural hemorrhage seen along the anterior medial aspect of the right frontal lobe of varying ages. This is similar in appearance to previous study dated 05/29/16. Mac Bell MD Objective Remarks awake and alert, speech soft but clear, oriented x 3 anicteric lungs no rales regular rhythm abdomen- soft good bowel sounds extremities no edema moves all extremities equally A/P Assessment and Plan Traumatic brain injury History of underlying Dementia - Status post fall - Small subdural hematoma with intraparenchymal extension - No neurosurgical intervention indicated - Monitor neuro checks- stable - Repeat CT head -stab;e- Neurosurgery ff - PT and OT eval and treat- need skilled rehab - restart her on Donepezil 5 mg daily Lower back pain - tylenol prn - was On meloxicam- Discontinued with GETACHEW Hypertension- some elevated readings - on review of home meds- was on HCTZ 25 mg daily, Lisinorpil 10 mg daily, amlodipine 10 mg daily. - Hydralazine when necessary -- restart on amlodipine 2.5 mg po daily Acute kidney injury- gentle hydration- resolved - her HCTZ and Lisinorpril were DC DVT GI prophylaxis - Early aggressive mobilization - Heart healthy diet DC to SNF this weekend if arranged- patient unsafe to be home by herself- d/w family- sis - on phone- lives by herself- suspect also underlying starting dementia- agrees with SNF Adeline Carranza MD May 31, 2016 15:19
[2016-05-31] MEDS ORDERED: ACET325T PO (15:35)
[2016-05-31] MEDS ORDERED: AMLO5 PO (15:35)
[2016-05-31] MEDS ORDERED: PILL SPLITTER OTHER PRN (15:45)
[2016-06-01] VITALS (8 sets, daily range): BP systolic 134–162; BP diastolic 61–72; PULSE 70–90; RESP 13–17; TEMP 98.2–100.5; O2SAT 94–97
[2016-06-01] MEDS: ACETAMINOPHEN 325 MG TAB PO PRN (00:35)
[2016-06-01] MEDS: SODIUM CHLOR 0.9% 1000 ML INJ 1,000 ML IV SCH (02:30)
[2016-06-01] MEDS: hydrALAZINE HCL 20 MG/ML VIAL IV PUSH PRN ×2 (03:06→09:35)
[2016-06-01] MEDS: CHLORHEXIDINE GLUCONATE 2 % 1 PACK (2 CLOTHS) TOP SCH (03:06)
[2016-06-01] MEDS: amLODIPine BESYLATE 5 MG TAB PO SCH ×2 (05:34→07:57)
[2016-06-01] MEDS: PANTOPRAZOLE SOD 40 MG DELAYED RELEASE TAB PO SCH (07:57)
[2016-06-01] MEDS: SODIUM CHLORIDE 0.9% FLUSH 10 ML FLUSH SCH (07:57)
[2016-06-01] MEDS ORDERED: amLODIPine BESYLATE 5 MG TAB PO SCH (09:00)
[2016-06-01] MEDS ORDERED: DONEPEZIL HCL 5 MG TAB PO SCH (09:00)
--- NOTE | 2016-06-01 11:07 | HHI.PR ---
Subjective Remarks resting comfortably with no distress. had a low grade fever last night. denies pain or headache. Objective Vitals Vital Signs Date Time Temp Pulse Resp B/P Pulse Ox O2 Delivery O2 Flow Rate FiO2 06/01/16 10:00 85 06/01/16 08:00 99.0 70 13 162/72 97 06/01/16 08:00 70 06/01/16 07:24 96 21 06/01/16 07:00 96 Room Air 06/01/16 06:00 78 06/01/16 04:00 86 06/01/16 04:00 99.2 86 15 134/63 96 06/01/16 02:00 88 06/01/16 00:00 100.5 90 17 159/71 94 06/01/16 00:00 90 05/31/16 22:00 84 05/31/16 20:00 88 05/31/16 20:00 99.4 88 19 164/72 98 05/31/16 19:33 98 05/31/16 19:00 96 Room Air 05/31/16 18:00 93 05/31/16 16:00 92 05/31/16 16:00 98.8 92 16 177/74 98 05/31/16 14:00 89 05/31/16 12:00 98.5 82 15 130/88 99 05/31/16 12:00 82 I/O 05/31/16 05/31/16 05/31/16 06/01/16 06/01/16 06/01/16 07:00 15:00 23:00 07:00 15:00 23:00 Intake Total 537 ml 1014 ml 607 ml 562 ml Balance 537 ml 1014 ml 607 ml 562 ml Intake Oral 100 ml 480 ml 250 ml 50 ml IV Total 437 ml 534 ml 357 ml 512 ml # Voids 3 3 2 3 # Bowel Movements 0 1 0 Result Diagram: 05/30/16200905/31/16 1406 Imaging Last Impressions Chest X-Ray 05/30/16 1849 Signed Impressions: Service Date/Time: May 18:54 - CONCLUSION: 1. Minimal basilar atelectasis. No effusion. No pneumothorax. Aaron Hendrix MD Head CT 05/30/16 0600 Signed Impressions: Service Date/Time: May 09:16 - CONCLUSION: 1. Subdural hemorrhage seen along the anterior medial aspect of the right frontal lobe of varying ages. This is similar in appearance to previous study dated 05/29/16. Mac Bell MD Objective Remarks GENERAL: This is a well-nourished, well-developed patient, in no apparent distress. CARDIOVASCULAR: Regular rate and regular rhythm without murmurs, gallops, or rubs. RESPIRATORY: Clear to auscultation. Breath sounds equal bilaterally. No wheezes , rales, or rhonchi. GASTROINTESTINAL: Abdomen soft, non-tender, nondistended. Normal, active bowel sounds MUSCULOSKELETAL: Extremities without clubbing, cyanosis, or edema. NEURO: awake and alert Procedures none Medications and IVs Current Medications Sodium Chloride 2 ml 2 ml UNSCH PRN IVF FLUSH AFTER USING IV ACCESS; Start at 21:15; Stop 05/29/16 at 22:45; Status DC Sodium Chloride (NS 1000 ml Inj) 1,000 ml @ 70 mls/hr [id number] IV Last administered on 06/01/16 02:30; Start 05/29/16 at 23:00 Sodium Chloride (NS Flush) 2 ml UNSCH PRN .XX FLUSH AFTER USING IV ACCESS; Start 05/29/16 at 22:45 Sodium Chloride (NS Flush) 2 ml BID .XX Last administered on 05/31/16 20:24; Start 05/29/16 at 22:45 Acetaminophen (Tylenol) 650 mg Q6H PRN PO PAIN 1-10 AND/OR FEVER >101F Last administered on 06/01/16 00:35; Start 05/29/16 at 22:45 Ondansetron HCl (Zofran Inj) 4 mg Q6H PRN IV NAUSEA OR VOMITING Last administered on 05/31/16 04:40; Start 05/29/16 at 22:45 Metoclopramide HCl (Reglan Inj) 5 mg Q6H PRN IV NAUSEA OR VOMITING; Start 05/29 at 22:45 Albuterol/ Ipratropium (Duoneb Neb) 1 ampule Q2HR NEB PRN INH WHEEZING; Start 05/29/16 at 22:45 Miscellaneous Information 1 Q361D XX ; Start 05/29/16 at 22:45 Chlorhexidine Gluconate (Chlorhexidine 2% Cloth) 3 pack Taper DAILY@04 TOP Last administered on 06/01/16 03:06; Start 05/30/16 at 04:00; Stop 05/26/17 at 03:59 Chlorhexidine Gluconate (Chlorhexidine 2% Cloth) 3 pack UNSCH PRN TOP HYGIENIC CARE; Start 05/29/16 at 22:45 Hydralazine HCl (Apresoline Inj) 20 mg Q4H PRN IV PUSH SBP>160, DBP>90 Last administered on 06/01/16 09:35; Start 05/29/16 at 22:45 Dextrose (D50w (Vial) Inj) 25 ml UNSCH PRN IV PUSH HYPOGLYCEMIA-SEE COMMENTS; Start 05/30/16 at 02:30; Stop 05/30/16 at 02:30; Status DC Glucagon (Glucagon Inj) 1 mg UNSCH PRN OTHER HYPOGLYCEMIA-SEE COMMENTS; Start 05/30/16 at 02:30; Stop 05/30/16 at 02:30; Status DC Insulin Aspart (NovoLOG SUPPLEMENTAL SCALE) 1 ACHS SLIDING SCALE SQ ; Start at 07:00; Stop 05/30/16 at 07:00; Status DC Pantoprazole Sodium (Protonix) 40 mg DAILY PO Last administered on 06/01/16 07 :57; Start 05/30/16 at 18:00 Amlodipine Besylate (Norvasc) 2.5 mg DAILY PO ; Start 06/01/16 at 09:00; Stop at 09:00; Status DC Donepezil HCl (Aricept) 5 mg DAILY PO Last administered on 06/01/16 07:57; Start 06/01/16 at 09:00 Miscellaneous (Pill Splitter) 1 ea UNSCH PRN OTHER SEE LABEL COMMENTS; Start at 15:45 Amlodipine Besylate (Norvasc) 2.5 mg DAILY PO Last administered on 06/01/16 07 :57; Start 06/01/16 at 05:30 A/P Assessment and Plan Traumatic brain injury History of underlying Dementia - Status post fall - Small subdural hematoma with intraparenchymal extension - No neurosurgical intervention indicated - Monitor neuro checks- stable - Repeat CT head -stable- Neurosurgery ff - PT and OT eval and treat- need skilled rehab - restarted her on Donepezil 5 mg daily low grade fever- check UA- will monitor temps Lower back pain - tylenol prn - was On meloxicam- Discontinued with GETACHEW Hypertension- some elevated readings - on review of home meds- was on HCTZ 25 mg daily, Lisinorpil 10 mg daily, amlodipine 10 mg daily. - Hydralazine when necessary -- restarted on amlodipine 2.5 mg po daily Acute kidney injury- gentle hydration- resolved - her HCTZ and Lisinorpril were DC DVT GI prophylaxis - Early aggressive mobilization - Heart healthy diet Discharge Planning dc to SNF today. f/u; pcp and neurosurgery. see med list. d/w the RN. Jerardo Forde MD Jun 01, 2016 11:06
[2016-06-01] MEDS ORDERED: ARIC5TAB PO (11:48)
--- NOTE | 2016-06-01 11:49 | HHI.DS ---
Discharge Summary Admission Date May 29, 2016 at 22:19 Discharge Date: Jun 01, 2016 Admitting Diagnosis intracranial hemorrhage (1) Intracranial hemorrhage ICD Code: I62.9 Diagnosis: Principal Procedures none Brief History - From Admission 86-year-old very pleasant female with a history of hypertension and some chronic back pain presents for evaluation of head injury with confusion. The patient is accompanied by her [id number] who provides some of the history. The patient fell while sweeping in her garage. She is unsure how she fell, does not remember if she tripped and fell or if she became dizzy and fell. States that she does not remember how long she laid there or if she lost consciousness. CT of the head shows small subdural hematoma with some small intraparenchymal hemorrhagic. She is admitted to critical care unit for neurologic monitoring and observation. CBC/BMP: 05/30/16200905/31/16 1406 Significant Findings Laboratory Tests Test 05/29/16 05/30/16 05/30/16 05/31/16 21:35 16:24 20:10 14:06 Red Blood Count 3.86 MIL/MM3 3.84 MIL/MM3 (4.00-5.30) (4.00-5.30) Hematocrit 34.9 % 34.5 % (35.0-46.0) (35.0-46.0) Neutrophils (%) (Auto) 72.0 % 75.6 % (16.0-70.0) (16.0-70.0) Monocytes (%) (Auto) 9.7 % (0.0-8.0) Activated Partial 30.8 SEC Thromboplast Time (24.3-30.1) Blood Urea Nitrogen 28 MG/DL (7-18) 21 MG/DL (7-18) 19 MG/DL (7-18) Creatinine 1.34 MG/DL 1.28 MG/DL 1.16 MG/DL (0.50-1.00) (0.50-1.00) (0.50-1.00) Estimat Glomerular Filtration 38 ML/MIN (>89) 40 ML/MIN (>89) 45 ML/MIN (>89) Rate Troponin I LESS THAN 0.02 NG/ML (0.02-0.05) Albumin 3.2 GM/DL (3.4-5.0) Chloride Level 112 MEQ/L 111 MEQ/L (98-107) (98-107) Imaging Last Impressions Chest X-Ray 05/30/16 1849 Signed Impressions: Service Date/Time: May 18:54 - CONCLUSION: 1. Minimal basilar atelectasis. No effusion. No pneumothorax. Aaron Hendrix MD Head CT 05/30/16 0600 Signed Impressions: Service Date/Time: May 09:16 - CONCLUSION: 1. Subdural hemorrhage seen along the anterior medial aspect of the right frontal lobe of varying ages. This is similar in appearance to previous study dated 05/29/16. Mac Bell MD PE at Discharge GENERAL: This is a well-nourished, well-developed patient, in no apparent distress. CARDIOVASCULAR: Regular rate and regular rhythm without murmurs, gallops, or rubs. RESPIRATORY: Clear to auscultation. Breath sounds equal bilaterally. No wheezes , rales, or rhonchi. GASTROINTESTINAL: Abdomen soft, non-tender, nondistended. Normal, active bowel sounds MUSCULOSKELETAL: Extremities without clubbing, cyanosis, or edema. NEURO: awake and alert Hospital Course Traumatic brain injury History of underlying Dementia - Status post fall - Small subdural hematoma with intraparenchymal extension - No neurosurgical intervention indicated - Monitor neuro checks- stable - Repeat CT head -stable- Neurosurgery ff - PT and OT eval and treat- need skilled rehab - restarted her on Donepezil 5 mg daily low grade fever- check UA- will monitor temps Lower back pain - tylenol prn - was On meloxicam- Discontinued with GETACHEW Hypertension- some elevated readings - on review of home meds- was on HCTZ 25 mg daily, Lisinorpil 10 mg daily, amlodipine 10 mg daily. - Hydralazine when necessary -- restarted on amlodipine 2.5 mg po daily Acute kidney injury- gentle hydration- resolved - her HCTZ and Lisinorpril were DC DVT GI prophylaxis - Early aggressive mobilization - Heart healthy diet Pt Condition on Discharge: Stable Discharge Disposition: Discharge to SNF Discharge Time: <= 30 minutes Discharge Instructions DIET: Follow Instructions for: As Tolerated, No Restrictions, Heart Healthy Diet Speech Therapy-Diet Recommends: Regular Activities you can perform: Weight Bearing as Dennys Follow up Referrals: Neurosurgery - 2 Weeks with Jose Kelly MD PCP Follow-up - 06/04/[address] [facility]/ with [facility] Jerardo Forde MD Jun 01, 2016 11:49
[2016-06-01 12:31] LABS: BACTERIA, URINE RARE /hpf; BLOOD, URINE NEG (NEG); GLUCOSE,URINE NEG (NEG); KETONE, URINE NEG (NEG); NITRITE,URINE NEG (NEG); SQUAMOUS EPITHELIAL CELL URINE <1 /hpf (0-5); URINE COLOR LIGHT-YELLOW (YELLW/STRAW)
[2016-06-01 12:32] LABS: COMMENT (UR) CULT NOT INDICATED; CULTURE IF INDICATED CULT NOT INDICATED
== END 2016-06-01 14:01 | disposition short-term general hospital (02) | DRG 83 ==
LOC: NEPC 20:34 → NEDA 22:19 → NEDH 05-30 02:33 → N03B 05-30 04:37
PROVIDERS: ADMIT Internal Medicine; ATTEND Internal Medicine
DX: S06.5X9A Traumatic subdural hemorrhage with loss of consciousness of unspecified duration, initial encounter (principal); N17.9 Acute kidney failure, unspecified; I10 Essential (primary) hypertension; G89.29 Other chronic pain; M54.5 Low back pain; F03.90 Unspecified dementia, unspecified severity, without behavioral disturbance, psychotic disturbance, mood disturbance, and anxiety; W01.0XXA Fall on same level from slipping, tripping and stumbling without subsequent striking against object, initial encounter; Y93.H9 Activity, other involving exterior property and land maintenance, building and construction; Y92.008 Other place in unspecified non-institutional (private) residence as the place of occurrence of the external cause
CPT/HCPCS: 70450; 71010; 80048; 80053; 81001; 82550; 84484; 85025; 85610; 85730; 87040; 87641; 93005; J0360; J2405; J7030

== ENCOUNTER 2017-01-21 12:40 | Emergency (ER) | payer MEDICARE, BC ==
[~2017-01-21 12:40] MED LIST changes: +ACET325T PO; -AMLO10 PO; +AMLO5 PO; +ARIC5TAB PO; -ASPI81 PO; -BUTACAP2 PO; -CIPR500T2 PO; -DONE5TAB14 PO; -HCTZ25 PO; -LISI20 PO; -PRED50 PO
[2017-01-21 12:42] VITALS: BP 187/84; PULSE 61; RESP 14; TEMP 98.2; O2SAT 98
[2017-01-21] MEDS ORDERED: SODIUM CHLORIDE 0.9% FLUSH 5 ML FLUSH IV FLUSH PRN (13:00)
[2017-01-21 13:48] LABS: AUTOMATED NEUTROPHIL # 5.2 TH/MM3 (1.8-7.7); BASOPHIL % 0.5 % (0.0-2.0); EOSINOPHIL # 0.1 TH/MM3 (0-0.4); HEMATOCRIT 38.7 % (35.0-46.0); HEMO FLAGS DIFF FINAL; LYMPH % 22.5 % (9.0-44.0); LYMPHOCYTE # 1.7 TH/MM3 (1.0-4.8); MEAN CELL VOLUME 91.8 FL (80.0-100.0); MEAN CORPUSCULAR HEMOGLOBIN 31.2 PG (27.0-34.0); MEAN CORPUSCULAR HGB CONC 33.9 % (32.0-36.0); MONO % 8.1 % (0.0-8.0); NEUT % 67.9 % (16.0-70.0); PLATELET COUNT 194 TH/MM3 (150-450); RED BLOOD COUNT 4.21 MIL/MM3 (4.00-5.30); RED CELL DISTRIBUTION WIDTH 13.5 % (11.6-17.2); WHITE BLOOD COUNT 7.7 TH/MM3 (4.0-11.0)
--- NOTE | 2017-01-21 13:53 | RADRPT ---
EXAM DATE/TIME: 01/21/2017 13:23 [facility] COMPARISON: CT BRAIN W/O CONTRAST, May 30, 2016, 9:16. INDICATIONS : Dizziness for 2 weeks with fall 3 days ago. RADIATION DOSE: 56.35 CTDIvol (mGy) MEDICAL HISTORY : Cardiovascular disease. Hypertension. SURGICAL HISTORY : Hysterectomy. ENCOUNTER: Initial ACUITY: 2 weeks PAIN SCALE: 3/10 LOCATION: cranial TECHNIQUE: Multiple contiguous axial images were obtained of the head. Using automated exposure control and adj ustment of the mA and/or kV according to patient size, radiation dose was kept as low as reasonably a chievable to obtain optimal diagnostic quality images. DICOM format image data is available electro nically for review and comparison. FINDINGS: CEREBRUM: There is moderate to severe generalized atrophy. Ventricles are mildly enlarged but within the range expected given the degree of atrophy and stable from the prior study. There is moderate periventricul ar white matter low attenuation. No midline shift, mass lesion, hemorrhage or acute infarction. No extra-axial fluid collections are seen. POSTERIOR FOSSA: The cerebellum and brainstem demonstrate no acute finding. The 4th ventricle is midline. The cerebe llopontine angle is unremarkable. EXTRACRANIAL: Visualized sinuses are clear. SKULL: The calvaria is intact. No evidence of skull fracture. CONCLUSION: 1. No acute intracranial abnormality is identified. 2. Chronic changes include generalized atrophy and chronic periventricular white matter changes. Nestor Edmondson MD on January 21, 2017 at 13:48 Board Certified Radiologist. This report was verified electronically.
[2017-01-21 13:57] LABS: APTT (PATIENT) 27.8 SEC (24.3-30.1); PROTHROMBIN TIME - PATIENT 10.9 SEC (9.8-11.6)
[2017-01-21 14:04] LABS: ANION GAP 9 MEQ/L (5-15); AST (GOT) 17 U/L (15-37); BICARBONATE 25.7 MEQ/L (21.0-32.0); BLOOD UREA NITROGEN 26 MG/DL (7-18); CHLORIDE 105 MEQ/L (98-107); GLOMERULAR FILTRATION RATE 42 ML/MIN (>89); POTASSIUM 4.6 MEQ/L (3.5-5.1); SODIUM (NA) 140 MEQ/L (136-145)
[2017-01-21 14:05] LABS: ALT (GPT) 18 U/L (10-53)
[2017-01-21 14:14] LABS: ALKALINE PHOSPHATASE 78 U/L (45-117); TOTAL BILIRUBIN ADULT 0.5 MG/DL (0.2-1.0)
[2017-01-21 14:19] LABS: CREATINE KINASE 52 U/L (26-192)
--- NOTE | 2017-01-21 14:22 | RADRPT ---
EXAM DATE/TIME: 01/21/2017 14:07 [facility] COMPARISON: No previous studies available for comparison. INDICATIONS : Dizziness. MEDICAL HISTORY : None. SURGICAL HISTORY : None. ENCOUNTER: Initial ACUITY: 2 days PAIN SCORE: 0/10 LOCATION: Bilateral chest FINDINGS: PA and lateral views of the chest demonstrate the lungs to be symmetrically aerated without evidence of mass, infiltrate or effusion. The cardiomediastinal contours are unremarkable. A S-shaped scolios is of the thoracolumbar spine. CONCLUSION: No acute cardiopulmonary process. Cristino Castrejon MD on January 21, 2017 at 14:20 Board Certified Radiologist. This report was verified electronically.
--- NOTE | 2017-01-21 14:42 | PD ---
HPI Chief Complaint: Altered Mental Status Time Seen by Provider: 14:26 Travel History International Travel<30 days: No Contact w/Intl Traveler<30days: No Traveled to known affect area: No History of Present Illness HPI This is an 86-year-old female who has a history of chronic dizziness for which she follows with Dr. Gregg who presents to the emergency department having had a fall 3 days ago. She was at her home when she fell and backwards and hit her head. She had a moderate headache at the time. They don't think she lost consciousness. She's not vomited. Her neighbors helped her get up off of the floor. This is her fourth fall in several months. Dr. Gregg's been seeing her in clinic for dizziness. He has an MRI scheduled for tomorrow and he has her in physical therapy which she's been participating in. Her daughter became concerned because she was complaining of a headache this morning in saying she was more dizzy than normal. She describes her dizziness as feeling unsteady on her feet. She uses a walker normally. She did see her primary care doctor earlier in the week and was diagnosed with a urinary tract infection and is on antibiotics for this. [facility] Past Medical History Arthritis: Yes Heart Rhythm Problems: No Cancer: No Cardiovascular Problems: Yes Chest Pain: No Congestive Heart Failure: No Cerebrovascular Accident: Yes Diabetes: No Diminished Hearing: No Genitourinary: Yes Hypertension: Yes Musculoskeletal: Yes (CHRONIC BACK PAIN LEVEL L3-L4) Neurologic: Yes (Dementia) Psychiatric: No Respiratory: No Thyroid Disease: No Menopausal: Yes Past Surgical History Cardiac Surgery: No Gynecologic Surgery: Yes Hysterectomy: Yes (1976) Thoracic Surgery: No Other Surgery: Yes (back surgery) Social History Alcohol Use: Yes (OCCASSIONAL) Tobacco Use: No Substance Use: No Allergies-Medications (Allergen,Severity, Reaction): Coded Allergies: cyanocobalamin (vitamin B12) (Unverified Allergy, Severe, 10/22/16) hydromorphone (Unverified Allergy, Intermediate, Sedation, 10/22/16) PT'S STATES AFTER DILAUDID WAS ADMINISTERED PT WENT UNCONSIOUS Reported Meds & Prescriptions Reported Meds & Active Scripts Active Aricept (Donepezil) 5 Mg Tab 5 Mg PO DAILY 30 Days Norvasc (Amlodipine Besylate) 5 Mg Tab 2.5 Mg PO DAILY 30 Days Acetaminophen 325 Mg Tab 650 Mg PO Q6H PRN Review of Systems Except as stated in HPI: all other systems reviewed are Neg Physical Exam Narrative GENERAL:Well appearing, no acute distress SKIN: Small old-appearing hematoma on the posterior occiput. HEAD: Atraumatic. Normocephalic. EYES: Pupils equal and round. No injection or drainage. ENT: Moist mucous membranes NECK: Trachea midline. No cervical spine tenderness. CARDIOVASCULAR: Regular rate and rhythm. No murmur appreciated. RESPIRATORY: Clear to auscultation. Breath sounds equal bilaterally. GASTROINTESTINAL: Abdomen soft, non-tender, nondistended. MUSCULOSKELETAL: No obvious deformities. NEUROLOGICAL: Awake and alert. No obvious cranial nerve deficits. No dysarthria or aphasia. No upper or lower extremity drift. No upper extremity ataxia. PSYCHIATRIC: Appropriate mood and affect; insight and judgment normal. Data Data Last Documented VS Vital Signs Date Time Temp Pulse Resp B/P (MAP) Pulse Ox O2 Delivery O2 Flow Rate FiO2 01/21/17 12:42 98.2 61 14 187/84 (118) 98 Orders Orders Electrocardiogram (01/21/17 12:52) Complete Blood Count With Diff (01/21/17 12:52) Comprehensive Metabolic Panel (01/21/17 12:52) Creatine Kinase (Cpk) (01/21/17 12:52) Prothrombin Time / Inr (Pt) (01/21/17 12:52) Act Partial Throm Time (Ptt) (01/21/17 12:52) Troponin I (01/21/17 12:52) Thyroid Stimulating Hormone (01/21/17 12:52) Urinalysis - C+S If Indicated (01/21/17 12:52) Chest, Pa & Lat (01/21/17 12:52) Ct Brain W/O Iv Contrast(Rout) (01/21/17 12:52) Sodium Chloride 0.9% Flush (Ns Flush) (01/21/17 13:00) Labs Laboratory Tests Test 01/21/17 13:25 White Blood Count 7.7 TH/MM3 Red Blood Count 4.21 MIL/MM3 Hemoglobin 13.1 GM/DL Hematocrit 38.7 % Mean Corpuscular Volume 91.8 FL Mean Corpuscular Hemoglobin 31.2 PG Mean Corpuscular Hemoglobin Concent 33.9 % Red Cell Distribution Width 13.5 % Platelet Count 194 TH/MM3 Mean Platelet Volume 9.2 FL Neutrophils (%) (Auto) 67.9 % Lymphocytes (%) (Auto) 22.5 % Monocytes (%) (Auto) 8.1 % Eosinophils (%) (Auto) 1.0 % Basophils (%) (Auto) 0.5 % Neutrophils # (Auto) 5.2 TH/MM3 Lymphocytes # (Auto) 1.7 TH/MM3 Monocytes # (Auto) 0.6 TH/MM3 Eosinophils # (Auto) 0.1 TH/MM3 Basophils # (Auto) 0.0 TH/MM3 CBC Comment DIFF FINAL Differential Comment Prothrombin Time 10.9 SEC Prothromb Time International Ratio 1.0 RATIO Activated Partial Thromboplast Time 27.8 SEC Blood Urea Nitrogen 26 MG/DL Creatinine 1.22 MG/DL Random Glucose 81 MG/DL Total Protein 6.9 GM/DL Albumin 3.6 GM/DL Calcium Level 9.3 MG/DL Alkaline Phosphatase 78 U/L Aspartate Amino Transf (AST/SGOT) 17 U/L Alanine Aminotransferase (ALT/SGPT) 18 U/L Total Bilirubin 0.5 MG/DL Sodium Level 140 MEQ/L Potassium Level 4.6 MEQ/L Chloride Level 105 MEQ/L Carbon Dioxide Level 25.7 MEQ/L Anion Gap 9 MEQ/L Estimat Glomerular Filtration Rate 42 ML/MIN Total Creatine Kinase 52 U/L Troponin I LESS THAN 0.02 NG/ML Thyroid Stimulating Hormone 3rd Gen 2.810 uIU/ML MDM Medical Decision Making Medical Screen Exam Complete: Yes Emergency Medical Condition: Yes Medical Record Reviewed: Yes (patient was admitted in May 2016 in the setting of a fall with intracranial hemorrhage) Interpretation(s) No leukocytosis Mild renal insufficiency Troponin normal TSH is normal Chest x-rays reassuring CT of the head: No intracranial hemorrhage Differential Diagnosis Subdural hematoma, subarachnoid hemorrhage, ischemic stroke, vestibular neuritis , BPPV Narrative Course This is an 86-year-old female who presents to the emergency department having had a fall 3 days ago. She is increasingly dizzy and has a headache. CT of the head was unremarkable. She has a grossly normal neurologic exam except for some short term memory problems. Labs were obtained which were reassuring. I had along conversation with the patient and the patient's daughter. They have an MRI scheduled for tomorrow. It appears that this dizziness is subacute and I don't suspect an acute stroke. I think it's reasonable for the patient to be discharged and follow-up at her outpatient appointment tomorrow. I said if her symptoms worsen or she develops new symptoms she should return to the emergency department at which time we did consider getting it more emergently. Diagnosis Primary Impression: Dizziness Patient Instructions: General Instructions Additional Instructions: If you develop severe worsening headache, persistent vomiting, numbness, weakness, difficulty walking or difficulty talking return to the emergency department immediately. Follow up tomorrow without fail to get your MRI and follow-up with Dr. Gregg. Med/Other Pt SpecificInfo: No Change to Meds Disposition: 01 DISCHARGE HOME Condition: Stable Mallory Monte MD Jan 21, 2017 14:42
[2017-01-21] MEDS ORDERED: LISI-515 PO (14:45)
[2017-01-21] MEDS ORDERED: DONE10TA7 PO (14:45)
[2017-01-21] MEDS ORDERED: CIPR250T52 PO (14:45)
== END 2017-01-21 15:27 | disposition home or self-care (01) ==
LOC: NEPC 12:40
DX: R42 Dizziness and giddiness (principal); W19.XXXA Unspecified fall, initial encounter; I10 Essential (primary) hypertension; M19.90 Unspecified osteoarthritis, unspecified site; Z86.73 Personal history of transient ischemic attack (TIA), and cerebral infarction without residual deficits; G89.29 Other chronic pain
CPT/HCPCS: 70450; 71020; 80053; 82550; 84443; 84484; 85025; 85610; 85730; 99285

== ENCOUNTER 2017-05-14 12:24 | Observation (INO) | payer MEDICARE, BC ==
[~2017-05-14] VITALS: Ht 167.6 cm; Wt 55.0 kg
[2017-05-14] VITALS (10 sets, daily range): BP systolic 120–227; BP diastolic 58–100; PULSE 65–91; RESP 16–20; TEMP 97.8–98; O2SAT 96–100
[~2017-05-14 12:24] MED LIST changes: -ACET325T PO; -AMLO5 PO; -ARIC5TAB PO; +CIPR250T52 PO; +DONE10TA7 PO; +LISI-515 PO
--- NOTE | 2017-05-14 13:28 | PD ---
HPI Chief Complaint: Fall Time Seen by Provider: 12:55 Travel History International Travel<30 days: No Contact w/Intl Traveler<30days: No Traveled to known affect area: No History of Present Illness HPI This is an 87-year-old female with history of hypertension, dementia, who presents via EMS after she apparently was found on the floor at her residence. The patient is unable to give history of how long she was on the floor. The patient did tell the paramedics that she thought she ate breakfast this morning. She reports pain in her left leg and upper back. Patient also states that she may have become dizzy prior to the fall. She denies a chest pain, chest pressure. She denies any abdominal pain. She states that she was too weak to get up. The patient is an extremely poor historian however she was able to answer some of the questions asked of her. She reports that she has some mild discomfort in the posterior portion of her head. She denies any neck pain. The patient presented in C-spine backboard immobilization however her clothes were soaked in urine. PFSH Past Medical History Arthritis: Yes Heart Rhythm Problems: No Cancer: No Cardiovascular Problems: Yes Chest Pain: No Congestive Heart Failure: No Cerebrovascular Accident: Yes Diabetes: No Diminished Hearing: No Genitourinary: Yes Hypertension: Yes Musculoskeletal: Yes (CHRONIC BACK PAIN LEVEL L3-L4) Neurologic: Yes (Dementia) Psychiatric: No Respiratory: No Thyroid Disease: No Menopausal: Yes Past Surgical History Cardiac Surgery: No Gynecologic Surgery: Yes Hysterectomy: Yes (1976) Thoracic Surgery: No Other Surgery: Yes (back surgery) Social History Alcohol Use: Yes (OCCASSIONAL) Tobacco Use: No Substance Use: No Allergies-Medications (Allergen,Severity, Reaction): Coded Allergies: cyanocobalamin (vitamin B12) (Unverified Allergy, Severe, 10/22/16) hydromorphone (Unverified Allergy, Intermediate, Sedation, 10/22/16) PT'S STATES AFTER DILAUDID WAS ADMINISTERED PT WENT UNCONSIOUS Reported Meds & Prescriptions Reported Meds & Active Scripts Active Reported Lisinopril 20 Mg Tab 20 Mg PO DAILY Donepezil 10 Mg Tab 10 Mg PO DAILY Review of Systems ROS Limitations: Poor Historian, Other: (History of dementia and somewhat confused.) General / Constitutional: No: Fever, Chills Eyes: No: Blurred Vision, Photophobia HENT: Positive: Headaches (Posterior occiput), Lightheadedness (Feels as though she may have become dizzy prior to the fall, no dizziness now.), No: Neck Pain Cardiovascular: No: Chest Pain or Discomfort, Palpitations Respiratory: No: Cough, Shortness of Breath Gastrointestinal: No: Nausea, Vomiting, Abdominal Pain Genitourinary: Positive: Incontinence, No: Dysuria Musculoskeletal: Positive: Limited ROM (Secondary to weakness.), Weakness, Pain (Left upper and lower leg. Right lower leg. Mid upper back.) Skin: No Rash Neurologic: Positive: Weakness (Unrealized), Dizziness (Patient believes she may have been dizzy prior to the fall), Headache (Superior occiput), Incontinence, No: Change in Mentation, Sensory Disturbance Physical Exam Narrative GENERAL: Elderly frail appearing female in no acute respiratory distress. SKIN: Focused skin assessment warm/dry. Patient has questionable bruising in her right upper humerus distribution. There is abrasion to her left knee and left lam. There is also a slight abrasion to her right tib-fib/chin area. HEAD: Atraumatic. Normocephalic. Objective tenderness in her posterior occiput. EYES: No scleral icterus. No injection or drainage. ENT: No nasal bleeding or discharge. Mucous membranes pink and moist. NECK: Trachea midline. C-collar mobilization. CARDIOVASCULAR: Regular rate and rhythm. No murmur appreciated. RESPIRATORY: No accessory muscle use. Clear to auscultation. Breath sounds equal bilaterally. GASTROINTESTINAL: Abdomen soft, non-tender, nondistended. Hepatic and splenic margins not palpable. MUSCULOSKELETAL: No obvious deformities. Abrasions to left knee and left lam and right lam. Questionable bruising to her right humerus distribution. NEUROLOGICAL: Awake and alert. No obvious cranial nerve deficits. Motor grossly within normal limits. Normal speech. Data Data Last Documented VS Vital Signs Date Time Temp Pulse Resp B/P (MAP) Pulse Ox O2 Delivery O2 Flow Rate FiO2 05/14/17 15:30 67 20 227/100 (142) 96 Room Air 05/14/17 12:53 98.0 Orders Orders Electrocardiogram (05/14/17 12:55) Complete Blood Count With Diff (05/14/17 12:55) Comprehensive Metabolic Panel (05/14/17 12:55) Ckmb (Isoenzyme) Profile (05/14/17 12:55) Troponin I (05/14/17 12:55) Urinalysis - C+S If Indicated (05/14/17 12:55) Cath For Specimen (05/14/17 12:55) Iv Access Insert/Monitor (05/14/17 12:55) Ecg Monitoring (05/14/17 12:55) Oximetry (05/14/17 12:55) Sodium Chlor 0.9% 1000 Ml Inj (Ns 1000 M (05/14/17 13:00) Ct Brain W/O Iv Contrast(Rout) (05/14/17 12:59) Ct Cerv Spine W/O Contrast (05/14/17 12:59) Ct Thor Spine W/O Contrast (05/14/17 12:59) Femur (Ap & Lat/2vws) (05/14/17 12:59) Humerus (Min 2vws) (05/14/17 12:59) Tibia/Fibula (Ap/Lat) (05/14/17 12:59) Tibia/Fibula (Ap/Lat) (05/14/17 12:59) Pelvis, Ap Only (Routine) (05/14/17 12:59) Chest, Single Ap (05/14/17 13:28) Urine Culture (05/14/17 13:25) Ceftriaxone Inj (Rocephin Inj) (05/14/17 14:30) Blood Culture (05/14/17 14:24) CKMB (05/14/17 14:17) CKMB% (05/14/17 14:17) Labs Laboratory Tests Test 05/14/17 13:25 05/14/17 14:17 White Blood Count 9.6 TH/MM3 Red Blood Count 4.59 MIL/MM3 Hemoglobin 13.9 GM/DL Hematocrit 41.1 % Mean Corpuscular Volume 89.6 FL Mean Corpuscular Hemoglobin 30.4 PG Mean Corpuscular Hemoglobin Concent 33.9 % Red Cell Distribution Width 14.3 % Platelet Count 204 TH/MM3 Mean Platelet Volume 9.3 FL Neutrophils (%) (Auto) 77.9 % Lymphocytes (%) (Auto) 14.9 % Monocytes (%) (Auto) 6.3 % Eosinophils (%) (Auto) 0.4 % Basophils (%) (Auto) 0.5 % Neutrophils # (Auto) 7.5 TH/MM3 Lymphocytes # (Auto) 1.4 TH/MM3 Monocytes # (Auto) 0.6 TH/MM3 Eosinophils # (Auto) 0.0 TH/MM3 Basophils # (Auto) 0.0 TH/MM3 CBC Comment DIFF FINAL Differential Comment Urine Color YELLOW Urine Turbidity HAZY Urine pH 6.0 Urine Specific [place] 1.019 Urine Protein NEG mg/dL Urine Glucose (UA) NEG mg/dL Urine Ketones 40 mg/dL Urine Occult Blood TRACE Urine Nitrite NEG Urine Bilirubin NEG Urine Urobilinogen LESS THAN 2.0 MG/DL Urine Leukocyte Esterase MOD Urine RBC 5 /hpf Urine WBC 52 /hpf Urine Bacteria OCC /hpf Urine Mucus FEW /lpf Microscopic Urinalysis Comment CULTURE INDICATED Blood Urea Nitrogen 19 MG/DL Creatinine 1.02 MG/DL Random Glucose 84 MG/DL Total Protein 6.8 GM/DL Albumin 3.4 GM/DL Calcium Level 9.1 MG/DL Alkaline Phosphatase 77 U/L Aspartate Amino Transf (AST/SGOT) 33 U/L Alanine Aminotransferase (ALT/SGPT) 20 U/L Total Bilirubin 0.9 MG/DL Sodium Level 139 MEQ/L Potassium Level 3.9 MEQ/L Chloride Level 106 MEQ/L Carbon Dioxide Level 25.5 MEQ/L Anion Gap 8 MEQ/L Estimat Glomerular Filtration Rate 52 ML/MIN Total Creatine Kinase 488 U/L Creatine Kinase MB 9.6 NG/ML Creatine Kinase MB % 2.0 % Troponin I LESS THAN 0.02 NG/ML MDM Medical Decision Making Medical Screen Exam Complete: Yes Emergency Medical Condition: Yes Differential Diagnosis Bilateral lower extremity contusions versus fracture versus thoracic spine compression fracture versus intracranial injury versus pelvic fracture versus metabolic derangement versus UTI versus pneumonia. Narrative Course This 87-year-old female presents via EMS after found on the floor at her residence. Patient has evidence of a UTI. Patient also noted to be dehydrated. Her CK is elevated at 600. The patient is too weak to ambulate or stand. She will be admitted to hospital for IV fluids and IV antibiotics. There is a call out to the [facility] hospitalist service. I discussed the possibility of her possibly going to an assisted living facility and at this point she and her daughter wished for her to go back home when she is discharged. They did state that they would love to speak with a social work case manager for possible home health options. Diagnosis Primary Impression: Cystitis Additional Impressions: Dehydration Elevated CPK Mechanical fall Left knee and lam abrasion and contusion Thoracic spine contusion Right tib-fib contusion History of dementia Admitting Information Admitting Physician Requests: Observation Alvaro Owens MD May 14, 2017 13:28
[2017-05-14 13:37] LABS: AUTOMATED NEUTROPHIL # 7.5 TH/MM3 (1.8-7.7); BASOPHIL % 0.5 % (0.0-2.0); EOSINOPHIL % 0.4 % (0.0-4.0); HEMATOCRIT 41.1 % (35.0-46.0); HEMOGLOBIN 13.9 GM/DL (11.6-15.3); LYMPH % 14.9 % (9.0-44.0); LYMPHOCYTE # 1.4 TH/MM3 (1.0-4.8); MEAN CELL VOLUME 89.6 FL (80.0-100.0); MEAN CORPUSCULAR HEMOGLOBIN 30.4 PG (27.0-34.0); MEAN CORPUSCULAR HGB CONC 33.9 % (32.0-36.0); MEAN PLATELET VOLUME 9.3 FL (7.0-11.0); MONO % 6.3 % (0.0-8.0); MONOCYTE # 0.6 TH/MM3 (0-0.9); NEUT % 77.9 % (16.0-70.0); PLATELET COUNT 204 TH/MM3 (150-450); RED BLOOD COUNT 4.59 MIL/MM3 (4.00-5.30); RED CELL DISTRIBUTION WIDTH 14.3 % (11.6-17.2); WHITE BLOOD COUNT 9.6 TH/MM3 (4.0-11.0)
[2017-05-14 13:51] LABS: BACTERIA, URINE OCC /hpf; BILIRUBIN, URINE NEG (NEG); BLOOD, URINE TRACE (NEG); GLUCOSE,URINE NEG (NEG); KETONE, URINE 40 mg/dL (NEG); MUCUS URINE FEW /lpf (OCC); NITRITE,URINE NEG (NEG); URINE COLOR YELLOW (YELLW/STRAW); URINE LEUKOCYTE ESTERASE MOD (NEG)
--- NOTE | 2017-05-14 14:08 | RADRPT ---
EXAM DATE/TIME: 05/14/2017 13:40 [facility] COMPARISON: CT BRAIN W/O CONTRAST, January 21, 2017, 13:23. INDICATIONS : Patient fell, complains of back pain RADIATION DOSE: 56.35 CTDIvol (mGy) MEDICAL HISTORY : Hypertension. Dementia. SURGICAL HISTORY : Hysterectomy. ENCOUNTER: Initial ACUITY: 1 day PAIN SCALE: 0/10 LOCATION: cranial TECHNIQUE: Multiple contiguous axial images were obtained of the head. Using automated exposure control and adj ustment of the mA and/or kV according to patient size, radiation dose was kept as low as reasonably a chievable to obtain optimal diagnostic quality images. DICOM format image data is available electro nically for review and comparison. FINDINGS: CEREBRUM: There is cortical atrophy. The ventricles appear dilated in proportion to sulci atrophy. No mass lesi on is seen. No acute intracranial hemorrhage is identified. POSTERIOR FOSSA: The cerebellum and brainstem are intact. The 4th ventricle is midline. The cerebellopontine angle i s unremarkable. EXTRACRANIAL: The visualized portion of the orbits is intact. SKULL: The calvaria is intact. No evidence of skull fracture. CONCLUSION: 1. Cortical atrophy and microvascular ischemic demyelinative change. No acute intracranial abnormalit y. Mac Bell MD on May 14, 2017 at 13:54 Board Certified Radiologist. This report was verified electronically.
[2017-05-14] MEDS: SODIUM CHLOR 0.9% 1000 ML INJ 1,000 ML IV SCH (14:16)
[2017-05-14] MEDS ORDERED: cefTRIAXone INJ 1,000 MG in SODIUM CHLORIDE 0.9% INJ 100 ML IV ONE (14:30)
[2017-05-14 15:14] LABS: ALBUMIN 3.4 GM/DL (3.4-5.0); ALT (GPT) 20 U/L (10-53); AST (GOT) 33 U/L (15-37); BICARBONATE 25.5 MEQ/L (21.0-32.0); BLOOD UREA NITROGEN 19 MG/DL (7-18); CALCIUM 9.1 MG/DL (8.5-10.1); CHLORIDE 106 MEQ/L (98-107); CREATININE 1.02 MG/DL (0.50-1.00); GLOMERULAR FILTRATION RATE 52 ML/MIN (>89); GLUCOSE,RANDOM 84 MG/DL (74-106); SODIUM (NA) 139 MEQ/L (136-145)
[2017-05-14 15:18] LABS: ALKALINE PHOSPHATASE 77 U/L (45-117); TOTAL BILIRUBIN ADULT 0.9 MG/DL (0.2-1.0); TOTAL PROTEIN 6.8 GM/DL (6.4-8.2); TROPONIN I LESS THAN 0.02 NG/ML (0.02-0.05)
--- NOTE | 2017-05-14 15:18 | RADRPT ---
EXAM DATE/TIME: 05/14/2017 14:36 [facility] COMPARISON: CHEST SINGLE AP, May 30, 2016, 18:54. INDICATIONS : Chest and back pain after fall. MEDICAL HISTORY : Hypertension. SURGICAL HISTORY : None. ENCOUNTER: Initial ACUITY: 1 day PAIN SCORE: 10/10 LOCATION: Bilateral chest FINDINGS: A single view of the chest demonstrates the lungs to be symmetrically aerated without evidence of mas s, infiltrate or effusion. The cardiomediastinal contours are unremarkable. Osseous structures are intact. CONCLUSION: No acute disease. Daniel Fontenot MD on May 14, 2017 at 15:16 Board Certified Radiologist. This report was verified electronically.
--- NOTE | 2017-05-14 15:22 | RADRPT ---
EXAM DATE/TIME: 05/14/2017 13:53 [facility] COMPARISON: CT CERVICAL SPINE W/O CONTRAST, May 14, 2017, 13:40. INDICATIONS : Patient fell, complains of back pain RADIATION DOSE: 20.04 CTDIvol (mGy) MEDICAL HISTORY : Hypertension. Dementia. SURGICAL HISTORY : Hysterectomy. ENCOUNTER: Initial ACUITY: 1 day PAIN SCALE: 6/10 LOCATION: back TECHNIQUE: Volumetric scanning of the thoracic spine was performed. Multiplanar reconstructions in the sagittal , coronal and oblique axial planes were performed. Using automated exposure control and adjustment o f the mA and/or kV according to patient size, radiation dose was kept as low as reasonably achievable to obtain optimal diagnostic quality images. DICOM format image data is available electronically f or review and comparison. FINDINGS: Sagittal and coronal reformats are provided. These demonstrate a mild S. shaped scoliosis. There is n o acute fracture identified. There are mild degenerative changes throughout. No destructive lesion is seen. Axial imaging through the disc spaces is provided. These demonstrate the osseous structures to be int act. These do confirm mild degenerative changes throughout the thoracic spine. There is no significan t neural foraminal stenosis or spinal stenosis identified. Note is made of a 1.5 x 3.1 cm calcification within the liver. This is only partially visualized on t gregg's examination. The well-circumscribed nature of this would suggest it may be benign however, fol lowup imaging for further assessment would be warranted. CONCLUSION: Scattered, mild degenerative changes throughout the thoracic spine. No acute fracture is identified. No significant neural foraminal stenosis or spinal stenosis is present. Mac Bell MD on May 14, 2017 at 14:50 Board Certified Radiologist. This report was verified electronically.
--- NOTE | 2017-05-14 15:36 | RADRPT ---
EXAM DATE/TIME: 05/14/2017 13:40 [facility] COMPARISON: No previous studies available for comparison. INDICATIONS : Patient fell, complains of back pain RADIATION DOSE: 27.56 CTDIvol (mGy) MEDICAL HISTORY : Dementia. Hypertension. SURGICAL HISTORY : Hysterectomy. ENCOUNTER: Initial ACUITY: 1 day PAIN SCALE: 0/10 LOCATION: neck TECHNIQUE: Volumetric scanning of the cervical spine was performed. Multiplanar reconstructions in the sagittal, coronal and oblique axial planes were performed. Using automated exposure control and adjustment o f the mA and/or kV according to patient size, radiation dose was kept as low as reasonably achievable to obtain optimal diagnostic quality images. DICOM format image data is available electronically f or review and comparison. FINDINGS: VERTEBRAE: Normal vertebral body height. ALIGNMENT: There is a grade 1 anterolisthesis of C3 on C4 with minimal retrolisthesis of C5 on C6. Calcified plaque involving the carotid arteries bilaterally. The thyroid gland is heterogeneous witho ut a discrete nodule. C2-C3: There is a mild central bulge. No central canal stenosis. Bony uncovertebral hypertrophy generates mo derate narrowing of the left neural foramen. Right neural foramen is patent. C3-C4: There is a mild broad-based disc bulge. No central canal stenosis. Prominent bony uncovertebral hyper trophy generates severe left and moderate right neural foraminal narrowing. C4-C5: A broad-based disc osteophyte complex eccentric to the left narrows the left lateral recess. It abuts the ventral portion of the cord. Bony uncovertebral hypertrophy generates severe right and mild left neural foraminal narrowing. C5-C6: A broad-based disc osteophyte complex flattens the ventral portion of the cord and narrows both later al recesses. Prominent bony uncovertebral hypertrophy generates significant bilateral neural foramina l narrowing. C6-C7: A broad-based disc osteophyte complex flattens the ventral portion of the cord and narrows both later al recesses more pronounced on the right. Bony uncovertebral hypertrophy generates moderate bilateral neural foraminal narrowing. C7-T1: The bony spinal canal is normal in size. No evidence of disc bulge or herniation. The neural forami na are bilaterally patent. CONCLUSION: 1. Diffuse degenerative changes. Most pronounced at C5-C6 and C6-C7. 2. No fracture or dislocation. 3. Carotid artery atherosclerotic calcifications. Loi Dash Jr., MD on May 14, 2017 at 15:23 Board Certified Radiologist. This report was verified electronically.
--- NOTE | 2017-05-14 15:43 | RADRPT ---
EXAM DATE/TIME: 05/14/2017 14:31 [facility] COMPARISON: No previous studies available for comparison. INDICATIONS : Back pain after fall. MEDICAL HISTORY : Hypertension. SURGICAL HISTORY : None. ENCOUNTER: Initial ACUITY: 1 day PAIN SCORE: 10/10 LOCATION: Bilateral back. FINDINGS: A single frontal view of the pelvis demonstrates no evidence of fracture. The bony pelvic ring is in tact. Bony mineralization is normal. The soft tissues are intact. Degenerative changes of lower karyna mbar spine. CONCLUSION: Degenerative change in lumbar spine, negative for fracture. Benja Bell MD FACR on May 14, 2017 at 15:39 Board Certified Radiologist. This report was verified electronically.
--- NOTE | 2017-05-14 15:44 | RADRPT ---
EXAM DATE/TIME: 05/14/2017 14:33 [facility] COMPARISON: No previous studies available for comparison. INDICATIONS : Left leg pain after fall. MEDICAL HISTORY : Hypertension. SURGICAL HISTORY : None. ENCOUNTER: Initial ACUITY: 1 day PAIN SCORE: 10/10 LOCATION: Left leg. FINDINGS: Two view examination of the left femur demonstrates no evidence of fracture or dislocation. Bony min eralization is normal. The soft tissue structures are intact. Degenerative changes in the knee. CONCLUSION: Negative for fracture, degenerative changes in the knee. Benja Bell MD FACR on May 14, 2017 at 15:42 Board Certified Radiologist. This report was verified electronically.
--- NOTE | 2017-05-14 15:45 | RADRPT ---
EXAM DATE/TIME: 05/14/2017 14:40 [facility] COMPARISON: No previous studies available for comparison. INDICATIONS : Right lower leg pain after fall. MEDICAL HISTORY : Hypertension. SURGICAL HISTORY : None. ENCOUNTER: Initial ACUITY: 1 day PAIN SCORE: 10/10 LOCATION: Right tibia. FINDINGS: Two view examination of the right tibia demonstrates no evidence of fracture or dislocation. Bony mi neralization is normal. The soft tissue structures are intact. CONCLUSION: Negative for fracture or dislocation. Follow up in 7-10 days is suggested if symptoms persist. Benja Bell MD FACR on May 14, 2017 at 15:43 Board Certified Radiologist. This report was verified electronically.
--- NOTE | 2017-05-14 15:45 | RADRPT ---
EXAM DATE/TIME: 05/14/2017 14:38 [facility] COMPARISON: No previous studies available for comparison. INDICATIONS : Right arm pain and bruising after fall. MEDICAL HISTORY : Hypertension. SURGICAL HISTORY : None. ENCOUNTER: Initial ACUITY: 1 day PAIN SCORE: 10/10 LOCATION: Right arm. FINDINGS: There are degenerative changes about the shoulder. Alignment is anatomic. Fractures are not appreci ated. CONCLUSION: Negative for fracture or dislocation. Follow up in 7-10 days is suggested if symptoms persist. Benja Bell MD FACR on May 14, 2017 at 15:42 Board Certified Radiologist. This report was verified electronically.
--- NOTE | 2017-05-14 15:46 | RADRPT ---
EXAM DATE/TIME: 05/14/2017 14:42 [facility] COMPARISON: No previous studies available for comparison. INDICATIONS : Left lower leg pain and medial laceration after fall. MEDICAL HISTORY : Hypertension. SURGICAL HISTORY : None. ENCOUNTER: Initial ACUITY: 1 day PAIN SCORE: 10/10 LOCATION: Left tibia. FINDINGS: Two view examination of the left tibia demonstrates no evidence of fracture or dislocation. Bony min eralization is normal. The soft tissue structures are intact. CONCLUSION: Negative for fracture or dislocation. Follow up in 7-10 days is suggested if symptoms persist. Benja Bell MD FACR on May 14, 2017 at 15:44 Board Certified Radiologist. This report was verified electronically.
[2017-05-14] MEDS ORDERED: NALOXONE HCL 0.4 MG/ML AMP IV PUSH PRN (16:45)
[2017-05-14] MEDS ORDERED: SODIUM CHLORIDE 0.9% FLUSH 10 ML FLUSH IV FLUSH PRN (16:45)
[2017-05-14] MEDS ORDERED: ENALAPRILAT 1.25 MG/ML VIAL IV PUSH PRN (17:00)
[2017-05-14] MEDS ORDERED: SODIUM CHLORID 0.9% 500 ML INJ 500 ML IV ONE (17:00)
--- NOTE | 2017-05-14 17:03 | HHI.HP ---
[facility] Primary Care Physician Mckay Franco, DO Admission Diagnosis fall Diagnoses: (1) UTI (urinary tract infection) Diagnosis: Principal (2) Dementia Diagnosis: Secondary (3) Elevated CPK Diagnosis: Principal (4) Gait instability Diagnosis: Principal Chief Complaint: ' I fell.' Travel History International Travel<30 Days: No Contact w/Intl Traveler <30 Da: No Traveled to Known Affected Are: No History of Present Illness patient is a 87 y/o female, with history of dementia and hypertension who was brought to ER after she was found on the floor earlier today. patient is a poor historian and most of the information was obtained from the ER record. she says that ' she had a fall in the kitchen yesterday'. she denies any prodromal symptoms before the fall. she had some pain to the left knee and left arm at the time of my evaluation. it's not known how long she's been on the floor. as noted information was limited due to her history of dementia. Review of Systems ROS Limitations: Poor Historian Musculoskeletal: COMPLAINS OF: Joint pain (left knee/ arm.) Past Family Social History Past Medical History dementia/ hypertension. Past Surgical History hysterectomy. Reported Medications Lisinopril 20 Mg Tab 20 Mg PO DAILY Donepezil 10 Mg Tab 10 Mg PO DAILY Allergies: Coded Allergies: cyanocobalamin (vitamin B12) (Unverified Allergy, Severe, 10/22/16) hydromorphone (Unverified Allergy, Intermediate, Sedation, 10/22/16) PT'S STATES AFTER DILAUDID WAS ADMINISTERED PT WENT UNCONSIOUS Active Ordered Medications Inpatient Medications Ceftriaxone Sodium 1000 mg/ Sodium Chloride 100 ml @ 200 mls/hr Q24H IV ; Start 05/15/17 at 16:45; Status UNV Naloxone HCl (Narcan Inj) 0.4 mg UNSCH PRN IV PUSH SEE LABEL COMMENTS; Start at 16:45; Status UNV Sodium Chloride (NS Flush) 2 ml BID IV FLUSH ; Start 05/14/17 at 21:00; Status UNV Family History could not be obtained. Social History no smoking per medical record. Physical Exam Vital Signs Vital Signs Date Time Temp Pulse Resp B/P (MAP) Pulse Ox O2 Delivery O2 Flow Rate FiO2 05/14/17 15:30 67 20 227/100 (142) 96 Room Air 05/14/17 12:53 98.0 78 20 218/94 (135) 96 Physical Exam GENERAL: This is a well-nourished, well-developed patient, in no apparent distress. SKIN: superficial lacerations noted on the left knee and left forearm.. HEAD: Atraumatic. Normocephalic. No temporal or scalp tenderness. EYES: Pupils equal round and reactive. Extraocular motions intact. No scleral icterus. No injection or drainage. ENT: Nose without bleeding, purulent drainage or septal hematoma. Throat without erythema, tonsillar hypertrophy or exudate. Uvula midline. Airway patent. NECK: Trachea midline. No JVD or lymphadenopathy. Supple, nontender, no meningeal signs. CARDIOVASCULAR: Regular rate and rhythm without murmurs, gallops, or rubs. RESPIRATORY: Clear to auscultation. Breath sounds equal bilaterally. No wheezes , rales, or rhonchi. GASTROINTESTINAL: Abdomen soft, non-tender, nondistended. No hepato-splenomegaly , or palpable masses. No guarding. MUSCULOSKELETAL: Extremities without clubbing, cyanosis, or edema. No joint tenderness, effusion, or edema noted. No calf tenderness. Negative Homans sign bilaterally. NEUROLOGICAL: Awake and alert. Cranial nerves II through XII intact. Motor and sensory grossly within normal limits. Five out of 5 muscle strength in all muscle groups. Normal speech. Laboratory Laboratory Tests Test 05/14/17 13:25 05/14/17 14:17 White Blood Count 9.6 Red Blood Count 4.59 Hemoglobin 13.9 Hematocrit 41.1 Mean Corpuscular Volume 89.6 Mean Corpuscular Hemoglobin 30.4 Mean Corpuscular Hemoglobin Concent 33.9 Red Cell Distribution Width 14.3 Platelet Count 204 Mean Platelet Volume 9.3 Neutrophils (%) (Auto) 77.9 Lymphocytes (%) (Auto) 14.9 Monocytes (%) (Auto) 6.3 Eosinophils (%) (Auto) 0.4 Basophils (%) (Auto) 0.5 Neutrophils # (Auto) 7.5 Lymphocytes # (Auto) 1.4 Monocytes # (Auto) 0.6 Eosinophils # (Auto) 0.0 Basophils # (Auto) 0.0 CBC Comment DIFF FINAL Differential Comment Urine Color YELLOW Urine Turbidity HAZY Urine pH 6.0 Urine Specific [place] 1.019 Urine Protein NEG Urine Glucose (UA) NEG Urine Ketones 40 Urine Occult Blood TRACE Urine Nitrite NEG Urine Bilirubin NEG Urine Urobilinogen LESS THAN 2.0 Urine Leukocyte Esterase MOD Urine RBC 5 Urine WBC 52 Urine Bacteria OCC Urine Mucus FEW Microscopic Urinalysis Comment CULTURE INDICATED Blood Urea Nitrogen 19 Creatinine 1.02 Random Glucose 84 Total Protein 6.8 Albumin 3.4 Calcium Level 9.1 Alkaline Phosphatase 77 Aspartate Amino Transf (AST/SGOT) 33 Alanine Aminotransferase (ALT/SGPT) 20 Total Bilirubin 0.9 Sodium Level 139 Potassium Level 3.9 Chloride Level 106 Carbon Dioxide Level 25.5 Anion Gap 8 Estimat Glomerular Filtration Rate 52 Total Creatine Kinase 488 Creatine Kinase MB 9.6 Creatine Kinase MB % 2.0 Troponin I LESS THAN 0.02 Date/Time Source Procedure Growth Status 05/14/17 15:25 Blood Peripheral Aerobic Blood Culture Pending Received 05/14/17 15:25 Blood Peripheral Anaerobic Blood Culture Pending Received 05/14/17 13:25 Urine Random Urine Urine Culture Pending Worksheet Result Diagram: 05/14/17 1325 05/14/17 1417 Imaging Last Impressions Chest X-Ray 05/14/17 1328 Signed Impressions: Service Date/Time: Sunday, May 14, 2017 14:36 - CONCLUSION: No acute disease. Daniel Fontenot MD Tibia/Fibula X-Ray 05/14/17 1259 Signed Impressions: Service Date/Time: Sunday, May 14, 2017 14:40 - CONCLUSION: Negative for fracture or dislocation. Follow up in 7-10 days is suggested if symptoms persist. Benja Bell MD FACR Thoracic Spine CT 05/14/17 1259 Signed Impressions: Service Date/Time: Sunday, May 14, 2017 13:53 - CONCLUSION: Scattered, mild degenerative changes throughout the thoracic spine. No acute fracture is identified. No significant neural foraminal stenosis or spinal stenosis is present. Mac Bell MD Pelvis X-Ray 05/14/17 1259 Signed Impressions: Service Date/Time: Sunday, May 14, 2017 14:31 - CONCLUSION: Degenerative change in lumbar spine, negative for fracture. Benja Bell MD FACR Humerus X-Ray 05/14/17 1259 Signed Impressions: Service Date/Time: Sunday, May 14, 2017 14:38 - CONCLUSION: Negative for fracture or dislocation. Follow up in 7-10 days is suggested if symptoms persist. Benja Bell MD FACR Head CT 05/14/17 1259 Signed Impressions: Service Date/Time: Sunday, May 14, 2017 13:40 - CONCLUSION: 1. Cortical atrophy and microvascular ischemic demyelinative change. No acute intracranial abnormality. Mac Bell MD Femur X-Ray 05/14/17 1259 Signed Impressions: Service Date/Time: Sunday, May 14, 2017 14:33 - CONCLUSION: Negative for fracture, degenerative changes in the knee. Benja Bell MD FACR Cervical Spine CT 05/14/17 1259 Signed Impressions: Service Date/Time: Sunday, May 14, 2017 13:40 - CONCLUSION: 1. Diffuse degenerative changes. Most pronounced at C5-C6 and C6-C7. 2. No fracture or dislocation. 3. Carotid artery atherosclerotic calcifications. Loi Dash Jr., MD EKG; sinus rhythm with LBBB ( old). Caprini VTE Risk Assessment Caprini VTE Risk Assessment: Mod/High Risk (score >= 2) Caprini Risk Assessment Model Point Value = 1 Point Value = 2 Point Value = 3 Point Value = 5 Age 41-60 Minor surgery BMI > 25 kg/m2 Swollen legs Varicose veins or History of unexplained or recurrent spontaneous Oral contraceptives or hormone replacement Sepsis (< 1 month) Serious lung disease, including pneumonia (< 1 month) Abnormal pulmonary function Acute myocardial infarction Congestive heart failure (< 1 month) History of inflammatory bowel disease Medical patient at bed rest Age 61-74 Arthroscopic surgery Major open surgery (> 45 min) Laparoscopic surgery (> 45 min) Malignancy Confined to bed (> 72 hours) Immobilizing plaster cast Central venous access Age >= 75 History of VTE Family history of VTE Factor V Leiden Prothrombin [id number] Lupus anticoagulant Anticardiolipin antibodies Elevated serum homocysteine Heparin-induced thrombocytopenia Other congenital or acquired thrombophilia Stroke (< 1 month) Elective arthroplasty Hip, pelvis, or leg fracture Acute spinal cord injury (< 1 month) Prophylaxis Regimen Total Risk Factor Score Risk Level Prophylaxis Regimen 0-1 Low Early ambulation 2 Moderate Order ONE of the following: *Sequential Compression Device (SCD) *Heparin 5000 units SQ BID 3-4 Higher Order ONE of the following medications: *Heparin 5000 units SQ TID *Enoxaparin/Lovenox 40 mg SQ daily (WT < 150 kg, CrCl > 30 mL/min) *Enoxaparin/Lovenox 30 mg SQ daily (WT < 150 kg, CrCl > 10-29 mL/min) *Enoxaparin/Lovenox 30 mg SQ BID (WT < 150 kg, CrCl > 30 mL/min) AND/OR *Sequential Compression Device (SCD) 5 or more Highest Order ONE of the following medications: *Heparin 5000 units SQ TID (Preferred with Epidurals) *Enoxaparin/Lovenox 40 mg SQ daily (WT < 150 kg, CrCl > 30 mL/min) *Enoxaparin/Lovenox 30 mg SQ daily (WT < 150 kg, CrCl > 10-29 mL/min) *Enoxaparin/Lovenox 30 mg SQ BID (WT < 150 kg, CrCl > 30 mL/min) AND *Sequential Compression Device (SCD) Assessment and Plan Assessment and Plan A/P - fall with superficial lacerations on the left knee/ left elbow fall precautions- routine wound care- consult PT and case management. -possible UTI started on IV Rocephin- will follow the UC and adjust the antibiotics accordingly. -hypertensive urgency resume lisinopril- Vasotec prn- will monitor and adjust the meds as needed. -mild rhabdomyolysis- start on gentle IV fluid- repeat BMP/CPK level tomorrow. -dementia; resume home meds. -DVT prophylaxis with SCD's Discussed Condition With the patient and RN. Problem Qualifiers (1) UTI (urinary tract infection): Qualified Codes: N39.0 - Urinary tract infection, site not specified (2) Dementia: Qualified Codes: F03.90 - Unspecified dementia without behavioral disturbance Jerardo Forde MD May 14, 2017 17:03
[2017-05-14] MEDS ORDERED: ACETAMINOPHEN 325 MG TAB PO PRN (17:15)
[2017-05-14] MEDS: LISINOPRIL 20 MG TAB PO SCH (17:43)
[2017-05-14] MEDS ORDERED: hydrALAZINE HCL 20 MG/ML VIAL IV PUSH ONE (18:15)
[2017-05-14] MEDS: SODIUM CHLORIDE 0.9% FLUSH 10 ML FLUSH IV FLUSH SCH (21:00)
[2017-05-15] VITALS (10 sets, daily range): BP systolic 147–162; BP diastolic 65–75; PULSE 65–94; RESP 16–18; TEMP 97.5–98.7; O2SAT 94–98
[2017-05-15] MEDS: SODIUM CHLOR 0.9% 1000 ML INJ 1,000 ML IV SCH ×3 (03:54→17:10)
[2017-05-15] MEDS: LISINOPRIL 20 MG TAB PO SCH (09:00)
[2017-05-15] MEDS: SODIUM CHLORIDE 0.9% FLUSH 10 ML FLUSH IV FLUSH SCH ×2 (09:00→19:33)
[2017-05-15] MEDS: DONEPEZIL HCL 5 MG TAB PO SCH (09:00)
--- NOTE | 2017-05-15 13:29 | HHI.PR ---
Subjective Remarks Follow-up UTI. Patient has no complaints she is oriented to person, place and month. Denies back and abdominal pain. Objective Vitals Vital Signs Date Time Temp Pulse Resp B/P (MAP) Pulse Ox O2 Delivery O2 Flow Rate FiO2 05/15/17 12:00 97.5 69 16 155/67 (96) 98 05/15/17 11:20 91 05/15/17 08:11 98.1 75 18 162/75 (104) 98 05/15/17 07:10 65 05/15/17 04:35 65 05/15/17 03:55 16 05/15/17 00:03 98.1 94 16 152/65 (94) 94 05/14/17 20:10 97.8 84 16 138/61 (86) 98 05/14/17 19:14 05/14/17 18:58 85 20 120/58 (78) 100 05/14/17 18:38 91 20 148/65 (92) 99 Room Air 05/14/17 18:32 75 18 201/82 (121) 99 05/14/17 18:24 66 20 192/83 (119) 99 Room Air 05/14/17 18:08 65 18 202/88 (126) 99 200/87 (124) 05/14/17 17:49 66 20 196/87 (123) 97 Room Air 05/14/17 15:30 67 20 227/100 (142) 96 Room Air I/O 05/14/17 05/14/17 05/14/17 05/15/17 05/15/17 05/15/17 07:00 15:00 23:00 07:00 15:00 23:00 Intake Total 100 ml Balance 100 ml Intake IV Total 100 ml # Voids 1 1 Result Diagram: 05/14/17 1325 05/14/17 1417 Imaging Last Impressions Chest X-Ray 05/14/17 1328 Signed Impressions: Service Date/Time: Sunday, May 14, 2017 14:36 - CONCLUSION: No acute disease. Daniel Fontenot MD Tibia/Fibula X-Ray 05/14/17 1259 Signed Impressions: Service Date/Time: Sunday, May 14, 2017 14:40 - CONCLUSION: Negative for fracture or dislocation. Follow up in 7-10 days is suggested if symptoms persist. Benja Bell MD FACR Thoracic Spine CT 05/14/17 1259 Signed Impressions: Service Date/Time: Sunday, May 14, 2017 13:53 - CONCLUSION: Scattered, mild degenerative changes throughout the thoracic spine. No acute fracture is identified. No significant neural foraminal stenosis or spinal stenosis is present. Mac Bell MD Pelvis X-Ray 05/14/17 1259 Signed Impressions: Service Date/Time: Sunday, May 14, 2017 14:31 - CONCLUSION: Degenerative change in lumbar spine, negative for fracture. Benja Bell MD FACR Humerus X-Ray 05/14/17 1259 Signed Impressions: Service Date/Time: Sunday, May 14, 2017 14:38 - CONCLUSION: Negative for fracture or dislocation. Follow up in 7-10 days is suggested if symptoms persist. Benja Bell MD FACR Head CT 05/14/17 1259 Signed Impressions: Service Date/Time: Sunday, May 14, 2017 13:40 - CONCLUSION: 1. Cortical atrophy and microvascular ischemic demyelinative change. No acute intracranial abnormality. Mac Bell MD Femur X-Ray 05/14/17 1259 Signed Impressions: Service Date/Time: Sunday, May 14, 2017 14:33 - CONCLUSION: Negative for fracture, degenerative changes in the knee. Benja Bell MD FACR Cervical Spine CT 05/14/17 1259 Signed Impressions: Service Date/Time: Sunday, May 14, 2017 13:40 - CONCLUSION: 1. Diffuse degenerative changes. Most pronounced at C5-C6 and C6-C7. 2. No fracture or dislocation. 3. Carotid artery atherosclerotic calcifications. Loi Dash Jr., MD Objective Remarks GENERAL: This is a well-nourished, well-developed patient, in no apparent distress. SKIN: superficial lacerations noted on the left knee and left forearm. Bilateral malar erythema not tender and not warm. CARDIOVASCULAR: Regular rate and rhythm without murmurs, gallops, or rubs. RESPIRATORY: Clear to auscultation. Breath sounds equal bilaterally. No wheezes , rales, or rhonchi. GASTROINTESTINAL: Abdomen soft, non-tender, nondistended. No guarding. No CVA tenderness MUSCULOSKELETAL: Extremities without clubbing, cyanosis, or edema. No joint tenderness, effusion, or edema noted. No calf tenderness. Negative Homans sign bilaterally. NEUROLOGICAL: Awake and alert. Cranial nerves II through XII intact. Motor and sensory grossly within normal limits. Five out of 5 muscle strength in all muscle groups. Normal speech. Procedures None A/P Problem List: (1) UTI (urinary tract infection) ICD Code: N39.0 - Urinary tract infection, site not specified (2) Dementia ICD Code: F03.90 - Dementia Status: Chronic (3) Elevated CPK ICD Code: R74.8 - Abnormal levels of other serum enzymes Status: Acute (4) Gait instability ICD Code: R26.81 - Gait instability Status: Acute Assessment and Plan Fall with superficial lacerations on the left knee/ left elbow. Wound care. PT consulted. Fall precautions. Case management for placement Gram-negative ricarda UTI. Continue Rocephin and follow culture Hypertensive urgency. Improved continue lisinopril Mild rhabdomyolysis- ct gentle IV fluid- repeat BMP/CPK level tomorrow. Dementia; resume home meds. DVT prophylaxis with SCD's and early ambulation Discharge Planning Possible discharge in 1-2 days case management consulted for placement Problem Qualifiers (1) UTI (urinary tract infection): Qualified Codes: N39.0 - Urinary tract infection, site not specified (2) Dementia: Qualified Codes: F03.90 - Unspecified dementia without behavioral disturbance Chase Powell MD May 15, 2017 13:29
[2017-05-15] MEDS ORDERED: cefTRIAXone INJ 1,000 MG in SODIUM CHLORIDE 0.9% INJ 100 ML IV SCH (17:00)
[2017-05-15] MEDS ORDERED: SENNOSIDES 8.6 MG TAB PO PRN (20:45)
[2017-05-15] MEDS ORDERED: LACTULOSE SYRUP 20 GM/30 ML CUP PO PRN (20:45)
[2017-05-15] MEDS ORDERED: NALOXONE HCL 0.4 MG/ML AMP IV PUSH PRN (20:45)
[2017-05-15] MEDS ORDERED: ONDANSETRON HCL 4 MG/2 ML VIAL IVP PRN (20:45)
[2017-05-15] MEDS ORDERED: BISACODYL 10 MG SUPP RECTAL PRN (20:45)
--- NOTE | 2017-05-15 21:47 | EKG ---
Date Performed: 05/14/2017 Time Performed: 13:22:45 PTAGE: 87 years EKG: Sinus rhythm LEFT BUNDLE BRANCH BLOCK ABNORMAL ECG NO PREVIOUS TRACING DOCTOR: Molina Padilla Interpretating Date/Time 05/15/2017 21:44:56
[2017-05-15] MEDS: DOCUSATE SODIUM 50 MG/SENNA 8.6 MG TAB PO SCH (23:13)
[2017-05-16 00:19] VITALS: BP 131/74; PULSE 74; RESP 18; TEMP 98; O2SAT 97
[2017-05-16 07:15] VITALS: PULSE 74
[2017-05-16] MEDS: DOCUSATE SODIUM 50 MG/SENNA 8.6 MG TAB PO SCH (08:58)
[2017-05-16] MEDS: SODIUM CHLORIDE 0.9% FLUSH 10 ML FLUSH IV FLUSH SCH (08:58)
[2017-05-16] MEDS: DONEPEZIL HCL 5 MG TAB PO SCH (08:58)
[2017-05-16] MEDS: LISINOPRIL 20 MG TAB PO SCH (08:58)
--- NOTE | 2017-05-16 09:03 | HHI.PR ---
Subjective Remarks Follow-up UTI. Patient has no UTI symptoms. She has no complaints and wants to go home. Discussed with nursing and case management Objective Vitals Vital Signs Date Time Temp Pulse Resp B/P (MAP) Pulse Ox O2 Delivery O2 Flow Rate FiO2 05/16/17 00:19 98.0 74 18 131/74 (93) 97 05/15/17 20:00 98.7 82 18 147/74 (98) 94 05/15/17 16:30 69 05/15/17 15:30 98.3 70 16 154/67 (96) 98 05/15/17 12:00 97.5 69 16 155/67 (96) 98 05/15/17 11:20 91 I/O 05/15/17 05/15/17 05/15/17 05/16/17 05/16/17 05/16/17 07:00 15:00 23:00 07:00 15:00 23:00 # Voids 3 Result Diagram: 05/14/17 1325 05/14/17 1417 Imaging Last Impressions Chest X-Ray 05/14/17 1328 Signed Impressions: Service Date/Time: Sunday, May 14, 2017 14:36 - CONCLUSION: No acute disease. Daniel Fontenot MD Tibia/Fibula X-Ray 05/14/17 1259 Signed Impressions: Service Date/Time: Sunday, May 14, 2017 14:40 - CONCLUSION: Negative for fracture or dislocation. Follow up in 7-10 days is suggested if symptoms persist. Benja Bell MD FACR Thoracic Spine CT 05/14/17 1259 Signed Impressions: Service Date/Time: Sunday, May 14, 2017 13:53 - CONCLUSION: Scattered, mild degenerative changes throughout the thoracic spine. No acute fracture is identified. No significant neural foraminal stenosis or spinal stenosis is present. Mac Bell MD Pelvis X-Ray 05/14/17 1259 Signed Impressions: Service Date/Time: Sunday, May 14, 2017 14:31 - CONCLUSION: Degenerative change in lumbar spine, negative for fracture. Benja Bell MD FACR Humerus X-Ray 05/14/17 1259 Signed Impressions: Service Date/Time: Sunday, May 14, 2017 14:38 - CONCLUSION: Negative for fracture or dislocation. Follow up in 7-10 days is suggested if symptoms persist. Benja Bell MD FACR Head CT 05/14/17 1259 Signed Impressions: Service Date/Time: Sunday, May 14, 2017 13:40 - CONCLUSION: 1. Cortical atrophy and microvascular ischemic demyelinative change. No acute intracranial abnormality. Mac Bell MD Femur X-Ray 05/14/17 125 Signed Impressions: Service Date/Time: Sunday, May 14, 2017 14:33 - CONCLUSION: Negative for fracture, degenerative changes in the knee. Benja Bell MD FACR Cervical Spine CT 05/14/17 125 Signed Impressions: Service Date/Time: Sunday, May 14, 2017 13:40 - CONCLUSION: 1. Diffuse degenerative changes. Most pronounced at C5-C6 and C6-C7. 2. No fracture or dislocation. 3. Carotid artery atherosclerotic calcifications. Loi Dash Jr., MD Objective Remarks GENERAL: This is a well-nourished, well-developed patient, in no apparent distress. SKIN: superficial lacerations noted on the left knee and left forearm. Bilateral malar erythema resolved CARDIOVASCULAR: Regular rate and rhythm without murmurs, gallops, or rubs. RESPIRATORY: Clear to auscultation. Breath sounds equal bilaterally. No wheezes , rales, or rhonchi. GASTROINTESTINAL: Abdomen soft, non-tender, nondistended. No guarding. No CVA tenderness MUSCULOSKELETAL: Extremities without clubbing, cyanosis, or edema. No joint tenderness, effusion, or edema noted. No calf tenderness. Negative Homans sign bilaterally. NEUROLOGICAL: Awake and alert. Cranial nerves II through XII intact. Motor and sensory grossly within normal limits. Five out of 5 muscle strength in all muscle groups. Normal speech. Procedures None A/P Problem List: (1) UTI (urinary tract infection) ICD Code: N39.0 - Urinary tract infection, site not specified (2) Dementia ICD Code: F03.90 - Dementia Status: Chronic (3) Elevated CPK ICD Code: R74.8 - Abnormal levels of other serum enzymes Status: Acute (4) Gait instability ICD Code: R26.81 - Gait instability Status: Acute Assessment and Plan Fall with superficial lacerations on the left knee/ left elbow. Wound care. Fall precautions. PT recommended rehab but does not qualify for inpatient status. Discussed with case management for placement, probably unable to afford rehabilitation. Patient will be discharged home with home care PT and visiting nurse. Family to provide 24-hour supervision Klebsiella UTI. Continue antimicrobials with Ceftin status post Rocephin Hypertensive urgency. Improved continue lisinopril Mild rhabdomyolysis-improved Dementia; resume home meds. DVT prophylaxis with SCD's and early ambulation Discharge Planning Discharge patient to home with visiting nurse and physical therapy Condition on discharge: Improved Regular Diet as tolerated Ad Shy activity no driving Rx written: Ceftin Follow-up with primary care physician Problem Qualifiers (1) UTI (urinary tract infection): Qualified Codes: N39.0 - Urinary tract infection, site not specified (2) Dementia: Qualified Codes: F03.90 - Unspecified dementia without behavioral disturbance Chase Powell MD May 16, 2017 09:03
[2017-05-16 09:52] LABS: AUTOMATED NEUTROPHIL # 6.9 TH/MM3 (1.8-7.7); BASOPHIL % 0.5 % (0.0-2.0); EOSINOPHIL # 0.1 TH/MM3 (0-0.4); EOSINOPHIL % 0.9 % (0.0-4.0); HEMOGLOBIN 12.3 GM/DL (11.6-15.3); LYMPH % 14.1 % (9.0-44.0); LYMPHOCYTE # 1.3 TH/MM3 (1.0-4.8); MEAN CELL VOLUME 89.9 FL (80.0-100.0); MEAN CORPUSCULAR HEMOGLOBIN 30.8 PG (27.0-34.0); MEAN CORPUSCULAR HGB CONC 34.2 % (32.0-36.0); MONO % 8.2 % (0.0-8.0); MONOCYTE # 0.7 TH/MM3 (0-0.9); NEUT % 76.3 % (16.0-70.0); PLATELET COUNT 170 TH/MM3 (150-450); RED CELL DISTRIBUTION WIDTH 14.7 % (11.6-17.2)
[2017-05-16 10:29] LABS: BICARBONATE 23.5 MEQ/L (21.0-32.0); CALCIUM 7.9 MG/DL (8.5-10.1); CREATININE 0.93 MG/DL (0.50-1.00)
[2017-05-16 11:30] VITALS: PULSE 66
[2017-05-16 12:18] VITALS: BP 128/60; RESP 18; TEMP 98.2; O2SAT 96
--- NOTE | 2017-05-16 13:12 | PD.CONS ---
Consult Service Palliative Care . Consult Requested By Abena VILLALBA . Primary Care Physician Mckay Franco DO . Reason for Consultation a. To assist with evaluation and management of symptoms including: confusion , debility b. To assist medical decision maker(s) with: better understanding of current medical conditions; weighing benefits/burdens of medical treatment options; making medical treatment decisions. . HPI History of Present Illness Ms. Mcleod is an 87-year-old female with a history of dementia, chronic back pain and hypertension who presented to [facility] ED on 05/14/2017 after being found on the floor. The patient did not know how long she was on the floor but told EMS she thought she ate breakfast that morning. She stated she may have become dizzy prior to the fall. Reporting pain in her left leg and upper back. Diagnostic data: * Vital signs: Pulse 78, respirations 20, BP 128/94, oxygen saturation 96% on room air, oral temperature 98.0 * WBC: 9.6, hemoglobin 13.9, hematocrit 41.1, platelets 204, neutrophils 77.9% * Sodium: 139, potassium 3.9, chloride 106, carbon dioxide 25.5, glucose 84, calcium 9.1 * BUN: 19, creatinine 1.02, GFR 52 * Total bilirubin: 0.9, AST 33, ALT 20, alkaline phosphatase 77 * Total creatine kinase: 488 * CK-MB: 9.6 * Troponin: <0.02 * Total protein: 6.8, albumin 3.4 * UA indicative of urinary tract infection * Tibia/fibula x-ray was negative for fracture or dislocation. * CT thoracic spine showed scattered, mild degenerative changes throughout the thoracic spine. No acute fracture; no significant neural foraminal stenosis or spinal stenosis present * Pelvis x-ray was negative for fracture * Numerous x-ray was negative for fracture or dislocation * CT head with no acute intracranial abnormalities. Cortical atrophy and microvascular ischemic demyelinative changes noted. * Femur x-ray was negative for fracture * Cervical spine CT with no fracture or dislocation; diffuse degenerative changes; carotid artery atherosclerotic calcifications. * Chest x-ray showed no acute disease Patient was dehydrated and had evidence of UTI. Her CK was elevated at 488. Patient was admitted to the hospital for IV fluids and IV antibiotics. She is significantly deconditioned and was too weak to ambulate or stand. Dr. Owens spoke to the patient's family and discussed it was possible the patient would need a left placement. Family indicating they wanted the patient to return home at discharge, but they were willing to speak with case management about home health options. Urine culture: + Klebsiella pneumoniae; blood cultures negative to date. Palliative Care was consulted to assist with symptom management and to discuss with the family the benefits and burdens of her current illnesses and the options regarding future care. . Function/Cognitive Trajectory Per patient's [id number], the patient lives alone. She has a history of multiple falls, reportedly at least 3 falls in the past 3 months. Patient was driving up to a few months ago. The patient's family has been trying to stop her from driving for over a year going as far as taking the battery out of the car. Patient's daughter in law checks on the patient regularly and brings her food. The patient has a walker but refuses to use it. She has been receiving physical therapy 2-3 times per week. . Review of Systems ROS Limitations: Altered Mental Status Constitutional: COMPLAINS OF: Generalized weakness Neurologic: COMPLAINS OF: Poor Balance Psychiatric: COMPLAINS OF: Confusion (Per [id number]'s report) Past Family Social History Coded Allergies: cyanocobalamin (vitamin B12) (Unverified Allergy, Severe, 10/22/16) hydromorphone (Unverified Allergy, Intermediate, Sedation, 10/22/16) PT'S STATES AFTER DILAUDID WAS ADMINISTERED PT WENT UNCONSIOUS Past Medical History Dementia Hypertension Intracranial hemorrhage status post fall in 05/2016 Chronic back pain Osteoporosis . Past Surgical History Hysterectomy Lumbar surgery . Reported Medications Lisinopril 20 Mg Tab 20 Mg PO DAILY Donepezil 10 Mg Tab 10 Mg PO DAILY . Current Medications Medications (Trade) Dose Ordered Sig/Sam Route Start Time Stop Time Status Last Admin Sodium Chloride 1,000 ml @ 50 mls/hr Q20H IV 05/14/17 13:00 05/15/17 17:10 (NS Flush) 2 ml UNSCH PRN IV FLUSH 05/14/17 16:45 (NS Flush) 2 ml BID IV FLUSH 05/14/17 21:00 (Narcan Inj) 0.4 mg UNSCH PRN IV PUSH 05/14/17 16:45 Ceftriaxone Sodium 1000 mg/ Sodium Chloride 100 ml @ 200 mls/hr Q24H IV 05/15/17 17:00 05/15/17 17:20 (Vasotec Inj) 1.25 mg Q8H PRN IV PUSH 05/14/17 17:00 05/14/17 17:54 (Tylenol) 650 mg Q4H PRN PO 05/14/17 17:15 (Aricept) 10 mg DAILY PO 05/15/17 09:00 05/16/17 08:58 (Prinivil) 20 mg DAILY PO 05/14/17 17:15 05/16/17 08:58 (Zofran Inj) 4 mg Q6H PRN IVP 05/15/17 20:45 (Krista-Colace) 1 tab BID PO 05/15/17 21:00 05/16/17 08:58 (Senokot) 17.2 mg Q12H PRN PO 05/15/17 20:45 (Dulcolax Supp) 10 mg DAILY PRN RECTAL 05/15/17 20:45 (Lactulose Liq) 30 ml DAILY PRN PO 05/15/17 20:45 Family History Family history is significant for hypertension and CHF in patient's mother. No familial history of diabetes, cancer or neurological disorders. Substance Use Tobacco: No history of smoking Alcohol: Drinks alcohol infrequently. Prescription med abuse: Illicits: Psychosocial History Patient was born in [place]. She and her moved to [place] in the 60s. Patient's 2011. Together they had 2 sons. One son in 2010. Her other son (Jonny) lives locally. He is to Lillie who is the patient's primary caregiver. . Spiritual/Cultural Factors Orthodoxy terrell . Documented care wishes: No documented care wishes have been completed. . Today's verbally stated goals: Patient wants "to go home." . Family/friends goals: Patient's family wanted the patient to go to a [facility] facility for rehab, but they were told the patient did not meet the requirements. . Ethical and Legal Issues Per [place] statutes, in the absence of written advanced directives healthcare proxy decision making falls to the patient's son (Jonny). . Physical Exam Vital Signs Date Time Temp Pulse Resp B/P (MAP) Pulse Ox O2 Delivery O2 Flow Rate FiO2 05/16/17 12:18 98.2 18 128/60 (82) 96 05/16/17 00:19 98.0 74 18 131/74 (93) 97 05/15/17 20:00 98.7 82 18 147/74 (98) 94 05/15/17 16:30 69 05/15/17 15:30 98.3 70 16 154/67 (96) 98 . Exam CONSTITUTIONAL/GENERAL: This is an elderly, female patient in no acute distress who appears younger than her stated age. TUBES/LINES/DRAINS: PIV 1 SKIN: No jaundice, rashes, or lesions. Ecchymoses on upper extremities. No wounds seen anteriorly. Skin temperature appropriate. Not diaphoretic. HEAD: Atraumatic. Normocephalic. EYES: Pupils equal and round and reactive. Extraocular motions intact. No scleral icterus. No injection or drainage. Fundi not examined. ENT: Hearing grossly normal. Nose without bleeding or purulent drainage. NECK: Trachea midline. CARDIOVASCULAR: Regular rate and rhythm without murmurs, gallops, or rubs. No JVD. Peripheral pulses symmetric. RESPIRATORY/CHEST: Symmetric, unlabored respirations. Clear to auscultation. Breath sounds equal bilaterally. No wheezes, rales, or rhonchi. GASTROINTESTINAL: Abdomen soft, non-tender, nondistended. Bowel sounds present. GENITOURINARY: Without palpable bladder distension. MUSCULOSKELETAL: Extremities without clubbing, cyanosis, or edema. No mottling or clubbing. LYMPHATICS: No palpable cervical or supraclavicular adenopathy. NEUROLOGICAL: Awake and alert but confused with known history of dementia. Patient answers some simple questions but then shuts her eyes and refuses to interact further. PSYCHIATRIC: No obvious anxiety/depression. . Diagnostic Tests Laboratory Laboratory Tests Test 05/14/17 13:25 05/14/17 14:17 05/16/17 09:00 White Blood Count 9.6 TH/MM3 (4.0-11.0) 9.0 TH/MM3 (4.0-11.0) Red Blood Count 4.59 MIL/MM3 (4.00-5.30) 4.00 MIL/MM3 (4.00-5.30) Hemoglobin 13.9 GM/DL (11.6-15.3) 12.3 GM/DL (11.6-15.3) Hematocrit 41.1 % (35.0-46.0) 36.0 % (35.0-46.0) Mean Corpuscular Volume 89.6 FL (80.0-100.0) 89.9 FL (80.0-100.0) Mean Corpuscular Hemoglobin 30.4 PG (27.0-34.0) 30.8 PG (27.0-34.0) Mean Corpuscular Hemoglobin Concent 33.9 % (32.0-36.0) 34.2 % (32.0-36.0) Red Cell Distribution Width 14.3 % (11.6-17.2) 14.7 % (11.6-17.2) Platelet Count 204 TH/MM3 (150-450) 170 TH/MM3 (150-450) Mean Platelet Volume 9.3 FL (7.0-11.0) 9.0 FL (7.0-11.0) Neutrophils (%) (Auto) 77.9 % (16.0-70.0) 76.3 % (16.0-70.0) Lymphocytes (%) (Auto) 14.9 % (9.0-44.0) 14.1 % (9.0-44.0) Monocytes (%) (Auto) 6.3 % (0.0-8.0) 8.2 % (0.0-8.0) Eosinophils (%) (Auto) 0.4 % (0.0-4.0) 0.9 % (0.0-4.0) Basophils (%) (Auto) 0.5 % (0.0-2.0) 0.5 % (0.0-2.0) Neutrophils # (Auto) 7.5 TH/MM3 (1.8-7.7) 6.9 TH/MM3 (1.8-7.7) Lymphocytes # (Auto) 1.4 TH/MM3 (1.0-4.8) 1.3 TH/MM3 (1.0-4.8) Monocytes # (Auto) 0.6 TH/MM3 (0-0.9) 0.7 TH/MM3 (0-0.9) Eosinophils # (Auto) 0.0 TH/MM3 (0-0.4) 0.1 TH/MM3 (0-0.4) Basophils # (Auto) 0.0 TH/MM3 (0-0.2) 0.0 TH/MM3 (0-0.2) CBC Comment DIFF FINAL DIFF FINAL Differential Comment Urine Color YELLOW (YELLW/STRAW) Urine Turbidity HAZY (CLEAR) Urine pH 6.0 (5.0-8.5) Urine Specific [place] 1.019 (1.002-1.035) Urine Protein NEG mg/dL (NEG-TRACE) Urine Glucose (UA) NEG mg/dL (NEG) Urine Ketones 40 mg/dL (NEG) Urine Occult Blood TRACE (NEG) Urine Nitrite NEG (NEG) Urine Bilirubin NEG (NEG) Urine Urobilinogen LESS THAN 2.0 MG/DL (LESS Urine Leukocyte Esterase MOD (NEG) Urine RBC 5 /hpf (0-3) Urine WBC 52 /hpf (0-5) Urine Bacteria OCC /hpf (NONE) Urine Mucus FEW /lpf (OCC) Microscopic Urinalysis Comment CULTURE INDICATED Blood Urea Nitrogen 19 MG/DL (7-18) 19 MG/DL (7-18) Creatinine 1.02 MG/DL (0.50-1.00) 0.93 MG/DL (0.50-1.00) Random Glucose 84 MG/DL (74-106) 95 MG/DL (74-106) Total Protein 6.8 GM/DL (6.4-8.2) Albumin 3.4 GM/DL (3.4-5.0) Calcium Level 9.1 MG/DL (8.5-10.1) 7.9 MG/DL (8.5-10.1) Alkaline Phosphatase 77 U/L (45-117) Aspartate Amino Transf (AST/SGOT) 33 U/L (15-37) Alanine Aminotransferase (ALT/SGPT) 20 U/L (10-53) Total Bilirubin 0.9 MG/DL (0.2-1.0) Sodium Level 139 MEQ/L (136-145) 141 MEQ/L (136-145) Potassium Level 3.9 MEQ/L (3.5-5.1) 3.7 MEQ/L (3.5-5.1) Chloride Level 106 MEQ/L (98-107) 110 MEQ/L (98-107) Carbon Dioxide Level 25.5 MEQ/L (21.0-32.0) 23.5 MEQ/L (21.0-32.0) Anion Gap 8 MEQ/L (5-15) 8 MEQ/L (5-15) Estimat Glomerular Filtration Rate 52 ML/MIN (>89) 57 ML/MIN (>89) Total Creatine Kinase 488 U/L (26-192) 143 U/L (26-192) Creatine Kinase MB 9.6 NG/ML (0.5-3.6) Creatine Kinase MB % 2.0 % (0.0-4.0) Troponin I LESS THAN 0.02 NG/ML . Result Diagram: 05/16/17 0905/16/17 09 Microbiology Microbiology Date/Time Source Procedure Growth Status 05/14/17 15:25 Blood Peripheral Aerobic Blood Culture - Preliminary NO GROWTH IN 2 DAYS Resulted 05/14/17 15:25 Blood Peripheral Anaerobic Blood Culture - Preliminary NO GROWTH IN 2 DAYS Resulted 05/14/17 15:22 Blood Peripheral Aerobic Blood Culture - Preliminary NO GROWTH IN 2 DAYS Resulted 05/14/17 15:22 Blood Peripheral Anaerobic Blood Culture - Preliminary NO GROWTH IN 2 DAYS Resulted 05/14/17 13:25 Urine Random Urine Urine Culture - Final Klebsiella Pneumoniae Complete . Imaging Last 72 hours Impressions Chest X-Ray 05/14/17 1328 Signed Impressions: Service Date/Time: Sunday, May 14, 2017 14:36 - CONCLUSION: No acute disease. Daniel Fontenot MD Tibia/Fibula X-Ray 05/14/17 1259 Signed Impressions: Service Date/Time: Sunday, May 14, 2017 14:40 - CONCLUSION: Negative for fracture or dislocation. Follow up in 7-10 days is suggested if symptoms persist. Benja Bell MD FACR Tibia/Fibula X-Ray 05/14/17 1259 Signed Impressions: Service Date/Time: Sunday, May 14, 2017 14:42 - CONCLUSION: Negative for fracture or dislocation. Follow up in 7-10 days is suggested if symptoms persist. Benja Bell MD FACR Thoracic Spine CT 05/14/17 1259 Signed Impressions: Service Date/Time: Sunday, May 14, 2017 13:53 - CONCLUSION: Scattered, mild degenerative changes throughout the thoracic spine. No acute fracture is identified. No significant neural foraminal stenosis or spinal stenosis is present. Mac Bell MD Pelvis X-Ray 05/14/17 1259 Signed Impressions: Service Date/Time: Sunday, May 14, 2017 14:31 - CONCLUSION: Degenerative change in lumbar spine, negative for fracture. Benja Bell MD FACR Humerus X-Ray 05/14/17 1259 Signed Impressions: Service Date/Time: Sunday, May 14, 2017 14:38 - CONCLUSION: Negative for fracture or dislocation. Follow up in 7-10 days is suggested if symptoms persist. Benja Bell MD FACR Head CT 05/14/17 1259 Signed Impressions: Service Date/Time: Sunday, May 14, 2017 13:40 - CONCLUSION: 1. Cortical atrophy and microvascular ischemic demyelinative change. No acute intracranial abnormality. Mac Bell MD Femur X-Ray 05/14/17 1259 Signed Impressions: Service Date/Time: Sunday, May 14, 2017 14:33 - CONCLUSION: Negative for fracture, degenerative changes in the knee. Benja Bell MD FACR Cervical Spine CT 05/14/17 1259 Signed Impressions: Service Date/Time: Sunday, May 14, 2017 13:40 - CONCLUSION: 1. Diffuse degenerative changes. Most pronounced at C5-C6 and C6-C7. 2. No fracture or dislocation. 3. Carotid artery atherosclerotic calcifications. Loi Dash Jr., MD . Patient/Family Conference Present at Family Conference: Spoke to patient at bedside. Later spoke to patient's daughter in law (with the patient's permission) via telephone. . Family Conference Location: Bedside, Telephone Issues Discussed: * Palliative care role, purpose, approach * Additional medical, psychosocial, and spiritual history * Patients general health, functional status, and cognitive changes in the months leading up to the current hospitalization * Patient/family understanding of the current medical problems * Patient/family understanding of prognosis * Patients goals of care as best understood from advance directives and/or conversations and/or values * Current medical treatment options and benefits/burdens of those options * Likely scenarios comparing ongoing aggressive care with a transition to comfort measures only * Questions answered to the best of my ability * Palliative care contact information provided . Assessment and Plan Disease Oriented Problem List: (1) Cervical spinal stenosis (2) Neural foraminal stenosis of cervical spine (3) Hypertension (4) Cystitis (5) Elevated CPK (6) History of dementia (7) UTI (urinary tract infection) (8) Gait instability (9) Intracranial hemorrhage Comment: s/p fall in 2017 . Symptom Scale: (1) Debility (2) Confusion Pertinent Non-Medical Issues Psychosocial: Patient was born in [place]. She and her moved to [place] in the 60s. Patient's 2011. Together they had 2 sons. One son in 2010. Her other son (Jonny) lives locally. He is to Lillie who is the patient's primary caregiver. Spiritual: Orthodoxy terrell Legal: Per [place] statutes, in the absence of written advanced directives healthcare proxy decision making falls to the patient's son (Jonny). Ethical issues impacting care: No known ethical issues at this time. . Important Contacts Lillie Mcleod, family/other: [phone] Alba Ritchie, sister: [phone] . Prognosis Patient is an 87 year old female with dementia, HTN and chronic back pain with a history of frequent falls. Patient has significant debility; she will likely be unable to live independently in the near future as her dementia progresses. Given her age, progressive dementia and debility, it is expected that she will continue to decline. . Code Status: Full Code Plan * FULL CODE * Decision-making: Patient's insight is limited secondary to her progressive dementia. Per [place] statutes, in the absence of written advanced directives healthcare proxy decision making falls to the patient's son (Jonny). * AGGRESSIVE GOALS * Patient's family wanted the patient to go to a [facility] facility for rehab, but they were told the patient did not meet the requirements. Patient is being discharged home; case management to arrange [facility]. * Discussed patient with Abena VILLALBA * Spoke to patient's daughter in law (with the patient's permission) via telephone. Palliative care contact information provided. * Symptom Management: = Confusion: CT brain showed cortical atrophy and microvascular ischemic demyelinative changes. Patient daughter in law reports symptoms of dementia began approximately 5 years ago. Patient continues to live independently. Patient was driving up to a few months ago. The patient's family has been trying to stop her from driving for over a year going as far as taking the battery out of the car. Hyjbrqrk-le-buc reports urinary incontinence and occasional fecal incontinence. FAST 6D = Debility: Patient has a history of multiple falls, reportedly at least 3 falls in the past 3 months. Patient was driving up to a few months ago. The patient has a walker but refuses to use it. She has been receiving physical therapy 2- 3 times per week. Patient being discharged home, case management coordinating [facility]. . Thank you for the opportunity to participate in the care of Ms. Mcleod. . Collaborating MD Comments To help prompt me to consider important information that might be impacting today's encounter and assessment, information from prior notes written by myself or my colleagues may have been "brought forward" into today's note. My signature on this note, however, is an attestation that I personally performed the exam, history, and/or decision-making noted today, and, unless otherwise indicated, the interactions with patient, family, and staff as well as the review of records all occurred today. I also attest that the listed assessment and stated plan reflect my best clinical judgment today based on the combination of historical information, prior notes, and today's exam/ interactions. When time spent is documented, it refers only to time spent today by the signer, or if indicated, combined time spent today by collaborating physician/nurse practitioner. . Shraddha He May 16, 2017 13:11
--- NOTE | 2017-05-16 13:48 | HHI.FF ---
Face to Face Verification Diagnosis: (1) Dementia (2) UTI (urinary tract infection) (3) Gait instability Physical Therapy Order: Evaluate and Treat, Improve ambulation, Strength and gait training Home Health Nursing Order: Medical education Signs/symptoms of disease process Nursing assessment with vital signs Mucker [place] Order: To Evaluate: Living conditions/environment, Support services Order: To Provide: Long range planning, Community services I have seen patient Sophia Mcleod on 05/16/17. My clinical findings support the need for the requested home health care services because: Ltd mobility - disease progression Deconditioned w/ increased weakness Med compliance is questionable Limited ability to care for self Impaired cognition/judgement High risk of falls Infection w/ risk of complications I certify that my clinical findings support that this patient is homebound because: Impaired cognitive ability/safety Unsteady gait/balance Unsafe to leave home unassisted Unable to use public transportation Esthela Whiteside PA-C May 16, 2017 13:48
[2017-05-16] MEDS ORDERED: CEFU1TAB18 PO (13:53)
[2017-05-16 15:30] VITALS: PULSE 70
== END 2017-05-16 16:15 | disposition home or self-care (01) ==
LOC: NEPC 12:24 → NEDA 17:34 → NEPHCDU 19:18
PROVIDERS: ADMIT Internal Medicine; ATTEND Internal Medicine
DX: N39.0 Urinary tract infection, site not specified (principal); B96.89 Other specified bacterial agents as the cause of diseases classified elsewhere; I10 Essential (primary) hypertension; I16.0 Hypertensive urgency; R74.8 Abnormal levels of other serum enzymes; R26.9 Unspecified abnormalities of gait and mobility; M48.02 Spinal stenosis, cervical region; F03.90 Unspecified dementia, unspecified severity, without behavioral disturbance, psychotic disturbance, mood disturbance, and anxiety; E86.0 Dehydration; M54.9 Dorsalgia, unspecified; G89.29 Other chronic pain; S81.012A Laceration without foreign body, left knee, initial encounter; M62.82 Rhabdomyolysis; R94.31 Abnormal electrocardiogram [ECG] [EKG]; I44.7 Left bundle-branch block, unspecified; M81.0 Age-related osteoporosis without current pathological fracture; I62.9 Nontraumatic intracranial hemorrhage, unspecified; Z90.710 Acquired absence of both cervix and uterus; Z91.81 History of falling; W18.30XA Fall on same level, unspecified, initial encounter; Y92.000 Kitchen of unspecified non-institutional (private) residence as the place of occurrence of the external cause
CPT/HCPCS: 70450; 71045; 72125; 72128; 72170; 73060; 73552; 73590; 80048; 80053; 81001; 82550; 82552; 84484; 85025; 87040; 87077; 87086; 87186; 93005; 96361; 96365; 96366; 96375; 97161; 97167; 99285; G0378; G8987; G8988; J0360; J0696; J7030; J7040; P9612